=== PATIENT | female | born 1990 | race Caucasian/White ===

== ENCOUNTER 2024-08-24 10:31 | Outpatient (CLI) | payer BC, SELFPAY ==
[2024-08-24 10:53] VITALS: BP 130/88; PULSE 86
[2024-08-24 10:54] VITALS: PULSE 86; O2SAT 98
[2024-08-24 10:55] VITALS: PULSE 91; RESP 20; TEMP 36.8; O2SAT 98
--- NOTE | 2024-08-24 12:52 | PC.OBNST ---
NST Note NST Note Start: 08/24/24 12:51 Freq: ONCE Status: Active Protocol: Document 08/24/24 12:03 VERONICA (Rec: 08/24/24 12:52 VERONICA No Response) NST Note 5 Para (# of births) 3 EDC 09/17/24 Gestational Age In 36 Weeks & 4 Days Weeks & Days Patient Presented Contractions/cramping with Complaint(s) of Reactive Yes Appropriate for Yes Gestational Age YENIFER Nguyen, YENIFERC Date 08/24/24 Reactive Yes Appropriate for Yes Gestational Age YENIFER Balbuena, RN Date 08/24/24 OB NST charge Yes Complete NST Note Yes via Write Note The provider's electronic signature indicates the NST is reactive/appropriate for gestational age. *Note to provider: If an addendum is required, open the patient's chart and click on the note under the Nurse/Allied Health tab.
== END 2024-08-24 12:15 | disposition home or self-care (01) ==
LOC: OB OUT 10:32 → OB 12:09
PROVIDERS: PCP Family Medicine; Visit Provider Family Medicine
DX: O47.03 False labor before 37 completed weeks of gestation, third trimester (principal); Z3A.36 36 weeks gestation of pregnancy
CPT/HCPCS: 59025; G0463

== ENCOUNTER 2024-09-06 04:54 | Outpatient (CLI) | payer BC, SELFPAY ==
[2024-09-06 05:25] VITALS: BP 123/82; PULSE 93; RESP 16; TEMP 36.9
[2024-09-06 05:37] LABS: Appearance Urine Clear (Clear); Bilirubin Urine Negative (Negative); Blood Urine Negative (Negative); Color Urine Yellow (Yellow); Glucose Urine Negative (Negative); Ketones Urine Negative (Negative); Leukocyte Esterase Urine Negative (Negative); Nitrite Urine Negative (Negative); Protein Urine Negative (Negative); Urobilinogen Urine 0.2 (0.2-1.0); pH Urine 6.5 (5.0-8.5)
--- NOTE | 2024-09-06 06:53 | PC.OBNST ---
NST Note NST Note Start: 09/06/24 04:55 Freq: ONCE Status: Active Protocol: Document 09/06/24 06:40 JAROD (Rec: 09/06/24 06:41 JAROD Desktop) NST Note 5 Para (# of births) 3 EDC 09/17/24 Gestational Age In 38 Weeks & 3 Days Weeks & Days Patient Presented Contractions/cramping with Complaint(s) of Reactive Yes Appropriate for Yes Gestational Age RN Corey RN Date 09/06/24 Reactive Yes Appropriate for Yes Gestational Age RN Elayne RN Date 09/06/24 OB NST charge Yes Complete NST Note Yes via Write Note The provider's electronic signature indicates the NST is reactive/appropriate for gestational age. *Note to provider: If an addendum is required, open the patient's chart and click on the note under the Nurse/Allied Health tab.
== END 2024-09-06 06:45 | disposition home or self-care (01) ==
LOC: OB OUT 04:54 → OB 04:58
PROVIDERS: PCP Family Medicine; Visit Provider Family Medicine
DX: O47.1 False labor at or after 37 completed weeks of gestation (principal); Z3A.38 38 weeks gestation of pregnancy
CPT/HCPCS: 59025; 81003; G0463

== ENCOUNTER 2024-09-11 19:58 | Inpatient (IN) | payer BC, SELFPAY ==
[2024-09-11 20:04] VITALS: BMI 39.1
[2024-09-11 20:23] VITALS: BP 123/82; PULSE 81; RESP 18; TEMP 36.7
[2024-09-11 20:57] LABS: Basophils Absolute Auto 0.01 K/uL (0.00-0.30); Basophils Percent Auto 0.1 % (0.0-3.0); Eosinophils Absolute Auto 0.13 K/uL (0.00-0.50); Eosinophils Percent Auto 1.6 % (0.0-7.0); Hematocrit 32.9 % (33.0-51.0); Hemoglobin* 11.3 gm/dL (12.0-16.0); Immature Granulocytes Abs Auto 0.05 K/uL (0.00-0.30); Immature Granulocytes Pct Auto 0.6 %; Lymphocytes Absolute Auto 1.92 K/uL (0.90-2.90); Lymphocytes Percent Auto 23.3 % (20-44); Mean Corpuscular HGB Conc 34 gm/dL (32-36); Mean Corpuscular Hemoglobin 30 pg (26-34); Mean Corpuscular Volume 88 fL (80-100); Monocytes Percent Auto 7.4 % (0.0-11.0); Neutrophils Absolute Auto 5.53 K/uL (1.7-7.0); Platelet Count* 206 K/uL (140-440); RDW Coefficient of Variation % 13.4 % (11.5-15.5); Red Blood Count 3.75 m/uL (4.00-5.20); White Blood Count* 8.25 K/uL (4.50-11.00)
[2024-09-11 21:00] LABS: Slide Review Reflex No
[2024-09-11] MEDS: miSOPROStoL 25 MCG/0.25 TABLET VAGINAL (21:00)
--- NOTE | 2024-09-11 21:08 | P.OBHP_ITS ---
OB - H&P: HPI Labor/Induction History of Present Illness Time Seen by Provider: :08 Date Seen: 09/11/24 Chief Complaint: The patient is a 33 year old 5 para 3013 at 39.1 weeks gestation by 7 week ultrasound (partner removed her IUD, did not have period between this and conception) with KAREN of 09/15/24, who presents for IOL for AMA. Chief complaint: Maternity : 5 Para: 3 Indications for induction: other (advanced maternal age) Narrative: Julissa Vasquez is a 33 year old female 5 para 3013 at 39.1 weeks gestation by 7 week ultrasound (partner removed her IUD, did not have period between this and conception) with KAREN of 09/15/24, who presents for IOL for AMA and presumed macrosomia. Patient's was complicated by choroid plexus cyst, low risk NIPT. Normal anatomy screen otherwise. History of hemorrhage with last delivery (Pitocin, cytotec, hemabate) Presumed macrosomia, weight at 94th percentile. Abdominal circumference and head circumference greater than 98th percentile. History of Present Dating criteria: based on 1st trimester US only (7 week ultrasound after IUD removal) care: good care Ultrasounds: abnormal US findings (choroid plexus cyst. Otherwise normal level 2 ultrasound) complications comment: AMA, macrosomia Medical complications: none Labs Blood type: O (+) positive Rubella: immune RPR/VDLR: nonreactive GBS status: negative HBsAG: negative Review of Systems Status of ROS: Reports: 10 or more systems reviewed and unremarkable except as noted in History and below Meds Home Medications and Allergies Home Medications ?Medication ?Instructions ?Recorded ?Confirmed ?Type cetirizine 10 mg capsule (All Day 10 mg PO DAILY PRN 0 08/24/24 09/11/24 History Allergy (cetirizine)) famotidine 20 mg tablet 20 mg PO DAILY 08/24/2411/28 History vit no.95-ferrous 1 tab PO DAILY 08/24/2411/28 History fumarate 28 mg-folic acid 800 mcg tablet ( Formula) Allergies Allergy/AdvReac Type Severity Reaction Status Date / Time erythromycin base Allergy Verified 09/11/24 20:26 OB - H&P: Exam Physical Exam: Vital signs: Temp Pulse Resp BP 98.1 F 81 18 123/82 09/11/24 20:23 09/11/24 20:23 09/11/24 20:23 09/11/24 20:23 Constitutional: Constitutional: no acute distress Routine HEENT Exam: Head: Present atraumatic and normal inspection Detailed Neck Exam: Thyroids: Thyroid: Present normal Routine Respiratory Exam: Respiratory: Present CTA bilaterally Routine Cardiovascular Exam: Cardiovascular: RRR, S1 and S2 Detailed Labor and Delivery Exam: Patient Gravid: yes Dilation (cm): 1 Effacement (%): 30 Cervix position: posterior Consistency: soft Cervical ripeness score: 4 Contraction frequency (min): 5 Contraction intensity: Mild Fetus (Single): Station: -2 Amniotic Membrane Status: intact Heart Rate Baseline: 120 Monitor Accelerations: Present Monitor Decelerations: None Equine Manager Variability: Moderate (6-25) Routine Back/Spine/Pelvis Exam: Back/Spine: full ROM Routine Skin Exam: Present intact Routine Neurological Exam: Present alert and oriented X3 Routine Psychiatric Exam: Present normal affect and normal thought process OB - Results Labs Labs: Short CBC 09/11/24 Range/Units 20:50 WBC 8.25 (4.50-11.00) K/uL Hgb 11.3 L (12.0-16.0) gm/dL Hct 32.9 L (33.0-51.0) % Plt Count 206 (140-440) K/uL OB - Problem Based A/P Additional Plan (1) Advanced maternal age (AMA) in : Problem details: Age 33 Status: Acute (2) Macrosomia affecting management of mother: Problem details: Baby measuring 95%ile with >98th percentile in head and abdominal circumference. Prior babies were 7-8 lbs. Status: Acute (3) Term : Status: Acute (4) History of hemorrhage, currently : Problem details: Required pitocin, cytotec, hemabate. Status: Acute Plan: - Type and screen now - starting hemoglobin 11.3 - Plan on pitocin, cycotec and TXA Plan - Anticipate - cervical ripening with cytotec - Pit/AROM in am - epidural when desired. Delivery/Labor/Induction Plan Plan: induction Induction method: per misoprostol protocol
[2024-09-11] MEDS: CALCIUM CARBONATE 500 MG CHEW PO (21:33)
[2024-09-11] MEDS: MORPHINE 10 MG/ML inj IM (23:03)
[2024-09-11] MEDS: hydrOXYzine pamoate 25 MG CAPSULE 100 MG PO (23:03)
[2024-09-12] VITALS (137 sets, daily range): BP systolic 83–149; BP diastolic 44–83; PULSE 68–151; RESP 16–18; TEMP 36.3–37; O2SAT 89–100
[2024-09-12] MEDS: miSOPROStoL 25 MCG/0.25 TABLET VAGINAL ×3 (00:02→06:02)
[2024-09-12] MEDS: METOCLOPRAMIDE HCL 5 MG/ML INJ 10 MG IVP ×2 (00:13→08:48)
--- NOTE | 2024-09-12 08:21 | PM.OBPNL ---
Subjective Time Seen by Provider: 08:21 Date Seen: 09/12/24 Narrative: Patient slept off and on overnight but is tired today. She is feeling more cramping. 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
[2024-09-12] MEDS: LACTATED RINGERS 1000 ML 1,000 ML 125 ML IV ×2 (10:04→12:55)
[2024-09-12] MEDS: OXYTOCIN 30 unit/500 ML in NS 30 UNIT/500 ML BAG IVPB (10:05)
--- NOTE | 2024-09-12 12:35 | PM.OBPNL ---
Subjective Time Seen by Provider: 12:35 Date Seen: 09/12/24 Narrative: Patient had SROM of clear fluid, requests epidural for pain management Objective Exam: Appears more uncomfortable with contractions. Vital Signs: Last Vital Signs Temp 98 F 09/12/24 08:23 Pulse 72 09/12/24 11:17 Resp 18 09/12/24 08:23 BP 118/70 09/12/24 11:17 Pulse Ox 100 09/12/24 12:34 Contractions Monitor mode: External Contraction pattern: Regular Contraction intensity: Mild Pitocin Rate (mU/min): 6 Assessment Assessment: induction ongoing Station: -2 Amniotic Membrane Status: SROM Status: Category l Tracing Comments: Baby currently difficult to trace during epidural Plan Plan: - anticipate - getting epidural now - will plan on checking once comfortable unless urge to push prior to this.
[2024-09-12] MEDS: ROPIVACAINE 0.2% 100 ml 100 ML 12 MG EPIDURAL (12:54)
[2024-09-12] MEDS: LIDOCAINE 2% (PF) 5 ML VIAL EPIDURAL (12:55)
[2024-09-12] MEDS: PHENYLEPHRINE 100 MCG/ML SYRINGE IVP ×3 (13:11→13:14)
--- NOTE | 2024-09-12 13:11 | PM.ANBPRC ---
[facility] Medical History Family history of melanoma ?Z80.8 - Family history of malignant neoplasm of other organs or systems (ICD-10) Family history of early CAD ?Z82.49 - Family history of ischemic heart disease and other diseases of the circulatory system (ICD-10) Mild intermittent asthma ?J45.20 - Mild intermittent asthma, uncomplicated (ICD-10) Endometriosis determined by laparoscopy ?N80.9 - Endometriosis, unspecified (ICD-10) Surgical History [place] teeth extracted ?K08.409 - Partial loss of teeth, unspecified cause, unspecified class (ICD-10) History of tonsillectomy and adenoidectomy ?Z90.89 - Acquired absence of other organs (ICD-10) Hx of laparoscopy ?Z98.890 - Other specified postprocedural states (ICD-10) H/O colposcopy with cervical biopsy ?Z98.890 - Other specified postprocedural states (ICD-10) Status post breast reduction ?Z98.890 - Other specified postprocedural states (ICD-10) Hx of appendectomy ?Z90.49 - Acquired absence of other specified parts of digestive tract (ICD-10) Social History What is your current living situation?: I presently have a place to live Problems where you live: no known problems In the past 12 months, utilities in danger of being shut off: no In past 12 months, lack of transportation kept you from medical appts, meetings, work, or getting things needed for daily living: no In the past 12 mos, have been you worried that your food would run out before you had money to buy more?: never true In the past 12 mos, the food you bought just didn't last and you didn't have money to buy more?: never true Smoking Status: Never smoker How often does anyone, including family, friends and others, physically hurt you: never How often does anyone, including family, friends and others, insult or talk down to you: never How often does anyone, including family, friends and others, threaten you with harm: never How often does anyone, including family, friends and others, scream or curse at you: never Meds Home Medications and Allergies Home Medications ?Medication ?Instructions ?Recorded ?Confirmed ?Type cetirizine 10 mg capsule (All Day 10 mg PO DAILY PRN 08/24/24 09/11/24 History Allergy (cetirizine)) famotidine 20 mg tablet 20 mg PO DAILY 08/24/24 09/11/24 History vit no.95-ferrous 1 tab PO DAILY 08/24/24 09/11/24 History fumarate 28 mg-folic acid 800 mcg tablet ( Formula) Allergies Allergy/AdvReac Type Severity Reaction Status Date / Time erythromycin base Allergy Verified 09/11/24 20:26 Results Labs Labs: Laboratory Results - last 24 hr 09/11/24 20:50 WBC 8.25 RBC 3.75 L Hgb 11.3 L Hct 32.9 L MCV 88 MCH 30 MCHC 34 RDW Coeff of Samantha 13.4 Plt Count 206 Neut % (Auto) 67.0 Lymph % (Auto) 23.3 Bowman % (Auto) 7.4 Eos % (Auto) 1.6 Baso % (Auto) 0.1 Neut # (Auto) 5.53 Lymph # (Auto) 1.92 Bowman # (Auto) 0.60 Eos # (Auto) 0.13 Baso # (Auto) 0.01 Abs Immat Gran (auto) 0.05 Imm/Tot Granulo (auto) 0.6 Blood Type O Positive Antibody Screen NEGATIVE Vital Signs Vital Signs: Last Vital Signs Temp 98 F 09/12/24 08:23 Pulse 81 09/12/24 13:10 Resp 18 09/12/24 08:23 BP 83/44 L 09/12/24 13:10 Pulse Ox 98 09/12/24 13:09 Weight: 110.042 kg Height: 167.64 cm Anesthesia Procedures Epidural Insertion Patient Location: OB Start Time: 12:30 Stop Time: 13:30 Start Date: 09/12/24 Stop Date: 09/12/24 Reason for Block: procedure for pain Patient Position: sitting Performed By: Dariel Monsalve Preanesthetic Checklist: IV checked, risks and benefits discussed, monitors and equipment checked, pre-op evaluation, timeout performed and anesthesia consent Prep: chlorhexidine gluconate Monitoring: blood pressure monitoring, continuous pulse oximetry and heart rate Approach: midline Vertebral Space: lumbar (1-5) Epidural Technique: HALLE saline Needle Type: Tuohy needle Injection Technique: continuous catheter Needle gauge: 17 Needle Length (cm): 10 cm Needle Insertion Depth (cm): 6 Catheter Gauge: 19 Catheter Type: multi-orifice Catheter at skin depth (cm): 15 Test Dose Result: negative and lidocaine 1.5% with epinephrine 1 to 200,000
[2024-09-12] MEDS: ePHEDrine sulfate 5 MG/ML inj 10 MG IVP (13:15)
--- NOTE | 2024-09-12 13:57 | PM.OBPNL ---
Subjective Time Seen by Provider: 13:57 Date Seen: 09/12/24 Narrative: Patient is now comfortable with epidural. Patient had prolonged decel 2/2 maternal hypotension, resolved with IV fluids, phenylephrine, position changes. Pitocin turned off during this time. Patient was 6 cm. Patient had 1 elevated bp >140 while painful during epidural placement. 1 elevated bp when giving meds for hypotension. Will monitor bp closely. 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 Hypotension has been treated. Will likely be complete soon. Plan Plan: - anticipate - continue to monitor FHT, frequent position changes - will continue to monitor blood pressure closely.
--- NOTE | 2024-09-12 15:53 | W.PM.OBVAGDE ---
OB Procedure Vag Delivery Mother Details Mother Details: The patient is a 33 year-old, 5, Para 3, admitted on 09/11/24 at 39.1 Days gestation for IOL for AMA, presumed macrosomia. : 5 Para: 3 Weeks Gestation: 39.2 Admission Date: 09/11/24 Additional Details Amniotic Membrane Status: SROM Amniotic Membrane Rupture Date: 09/12/24 Amniotic Membrane Rupture Time: 12:10 Amniotic Membrane Fluid Description: Clear Analgesia/Anesthesia Type: Epidural Waterbirth: No Pitcoin: Yes Intrapartal Events: Labor Induction Induction Method: per misoprostol protocol and per pitocin protocol Labor Onset: 12:10 Complete: 14:21 Pushin:25 Heart: heart tones during second stage were had intermittent variable and late decals. We had to push on side for most of pushing so baby could recover between contractions. Had improvement in heart tracing just prior to delivery while pushing on left side. Delivery Details Delivery Date: 09/12/24 Delivery Time: 15:26 Route of delivery: Infant Gender: Male Viability: Alive; Heart Rate Present Position at Delivery: OP Delivery Details: Patient presented for IOL for AMA and macrosomia at 39.1. Received cytotec x4 overnight with good response. She was 3 cm when we initiated pitocin. She progressed well, SROMed at 1210 and requested epidural. She had dense epidural. Had recurrent early/variable decels. Progressed quickly becoming complete at 1421. We began pushing at 1425. Patient had dense epidural that made it difficult to push, so this was turned down during pushing. Patient then pushed effectively. Delivered via spontaneous vaginal delivery in OP position. Shoulders delivered easily. Infant was placed on maternal abdomen.? Cord was clamped and cut after a 30-60 second delay. Nose and mouth were bulb suctioned.? weight 8 lbs 12 oz. 1 Minute Interval Total Score: 8 5 Minute Interval Total Score: 9 Additional Details Shoulder Dystocia: No Placenta Delivery Time: 15:33 Placental Delivery Description: Spontaneous Delivery repair: Vicryl Procedure Done: Global Blood Loss: 250 Laceration: Perineal - 2nd Degree Blood Loss Measurement Type: QBL Bakri Used: No Sponge/Need Count Correct: Yes Cord Vessel Description: 3 Vessels Event Summary Status: Placenta showed accessory placental lobe and marginal cord, sent for pathology. Patient has history of hemorrhage, received pitocin and TXA immediately after cord was cut/clamped. Patient had some ongoing atony after repair, so cytotec was given. QBL was 250. Mother and were stable after delivery. Disposition: no change
[2024-09-12] MEDS: miSOPROStoL 800 MCG/4 TABLET PR (16:00)
[2024-09-12] MEDS: TRANEXAMIC ACID 100 MG/ML INJ 1000 MG IV (16:00)
[2024-09-12] MEDS: OXYCODONE 5 MG TABLET PO ×2 (16:22→20:49)
[2024-09-12] MEDS: ACETAMINOPHEN 500 MG TABLET 1000 MG PO ×2 (16:50→23:23)
[2024-09-12] MEDS: LIDOCAINE 1 % PF 30 ML INJECTION (16:50)
[2024-09-12] MEDS: IBUPROFEN 600 MG TABLET PO ×2 (17:50→23:23)
[2024-09-12 18:02] LABS: Hematocrit 34.5 % (33.0-51.0); Hemoglobin* 11.9 gm/dL (12.0-16.0); Mean Corpuscular HGB Conc 35 gm/dL (32-36); Mean Corpuscular Hemoglobin 30 pg (26-34); Mean Corpuscular Volume 87 fL (80-100); Platelet Count* 183 K/uL (140-440); Red Blood Count 3.98 m/uL (4.00-5.20); White Blood Count* 15.54 K/uL (4.50-11.00)
[2024-09-12 18:09] LABS: Slide Review Reflex No
[2024-09-12 18:42] LABS: Alanine Aminotransferase* 19 U/L (4-35); Aspartate Amino Transferase* 45 U/L (12-35); Blood Urea Nitrogen* 8 mg/dL (5-24); Creatinine* 0.5 mg/dL (0.5-1.5); Est. Creatinine Clearance* 147.01; Estimated Glomerular Filt Rate 125 ml/min
[2024-09-13] MEDS: OXYCODONE 5 MG TABLET PO ×3 (01:28→15:33)
[2024-09-13 04:11] LABS: Mean Corpuscular HGB Conc 34 gm/dL (32-36); Mean Corpuscular Hemoglobin 30 pg (26-34); Mean Corpuscular Volume 87 fL (80-100); Platelet Count* 176 K/uL (140-440); Red Blood Count 3.67 m/uL (4.00-5.20); White Blood Count* 12.02 K/uL (4.50-11.00)
[2024-09-13 04:12] LABS: Slide Review Reflex No
[2024-09-13 04:30] VITALS: BP 121/79; PULSE 80; RESP 16; TEMP 36.7; O2SAT 98
[2024-09-13 04:31] LABS: Alanine Aminotransferase* 23 U/L (4-35); Aspartate Amino Transferase* 60 U/L (12-35); Blood Urea Nitrogen* 7 mg/dL (5-24); Creatinine* 0.5 mg/dL (0.5-1.5); Est. Creatinine Clearance* 147.01; Estimated Glomerular Filt Rate 125 ml/min
[2024-09-13] MEDS: IBUPROFEN 600 MG TABLET PO ×3 (05:49→17:33)
[2024-09-13] MEDS: ACETAMINOPHEN 500 MG TABLET 1000 MG PO ×3 (05:49→17:32)
--- NOTE | 2024-09-13 07:46 | P.OBPN_ITS ---
OB - PN:Subj Subjective Time Seen by Provider: 07:46 Date Seen: 09/13/24 [place] status: bottle and doing well Narrative: Patient had difficulty with pain management, requiring oxycodone after delivery. Patient is feeling better with scheduled tylenol/ibuprofen/oxycodone. She is also using heating pad. She feels bleeding is appropriate Had elevated BP yesterday, no symptoms of preeclampsia. She continues to feel well. OB - PN: Obj Exam Physical Exam: Vital signs: Temp Pulse Resp BP Pulse Ox O2 Del Method 98.0 F 80 16 121/79 98 Room Air 09/13/24 04:30 09/13/24 04:30 09/13/24 04:30 09/13/24 04:30 09/13/24 04:30 09/13/24 04:30 Constitutional: Constitutional: no acute distress Routine HEENT Exam: Head: Present atraumatic and normal inspection Routine Neck Exam: Neck: Present full ROM Routine Respiratory Exam: Respiratory: Present CTA bilaterally Routine Cardiovascular Exam: Cardiovascular: Present RRR, S1 and S2; Absent murmur Routine Abdominal Exam: Abdominal: Present soft; Absent tenderness Fundus: Present firm Comments: uterus fundus 1 U umbilicus. Nontender Routine Extremities Exam: Extremities: Present full ROM, pulses intact and pedal edema (1+); Absent calf tenderness Routine Neurological Exam: Neurological: Present alert and oriented X3 Routine Psychiatric Exam: Psychiatric: Present normal affect OB - PN: Obj Data Labs Labs: Laboratory Results - last 24 hr 09/12/24 09/13/24 17:55 03:59 WBC 15.54 H 12.02 H RBC 3.98 L 3.67 L Hgb 11.9 L 11.0 L Hct 34.5 32.0 L MCV 87 87 MCH 30 30 MCHC 35 34 Plt Count 183 176 BUN 8 7 Creatinine 0.5 0.5 Estimated Creat Clear 147.01 147.01 Estimated GFR 125 125 AST 45 H 60 H ALT 19 23 OB - PN: A/P Delivery Assessment and Plan (1) Advanced maternal age (AMA) in : Problem details: Age 33 Status: Acute (2) Macrosomia affecting management of mother: Problem details: Baby measuring 95%ile with >98th percentile in head and abdominal circumference. Prior babies were 7-8 lbs. Status: Acute Assessment and Plan: Baby delivered 8 lbs 12 oz (3) Term : Status: Acute (4) History of hemorrhage, currently : Problem details: Required pitocin, cytotec, TXA, QBL 250 Status: Acute Assessment and Plan: - hemoglobin appropriate (5) (normal spontaneous vaginal delivery): Problem details: Delivered in OP position after 1 hour of pushing. Status: Acute Assessment and Plan: Pain control with oxycodone in addition to schedule tylenol/motrin (6) Gestational HTN: Problem details: BP elevation in recovery. Labs showed mildly elevated LFTs Status: Acute Assessment and Plan: - recheck LFT at 1300 today Plan - Recheck pre-e labs and continue to monitor for symptoms - pain management with ibuprofen/tylenol/oxycodone/heat - continue bottle feeding. Plan day: 1 Plan: routine care Comments: may discharge later today if LFTs stable/down trending and blood pressures continue to be stable.
[2024-09-13] MEDS: DOCUSATE SODIUM 100 MG CAPSULE PO (07:57)
[2024-09-13] MEDS: FAMOTIDINE 20 MG TABLET PO (07:57)
[2024-09-13 07:59] VITALS: PULSE 80; RESP 17; TEMP 36.6; O2SAT 98
[2024-09-13 09:21] VITALS: BP 115/76
--- NOTE | 2024-09-13 09:28 | PC.NURSE ---
RN called to room by patient for episode of lightheadedness while resting in bed. RN took a blood pressure, which was in normal range, and then educated patient on taking breaks from the heating pad on her abdomen. Patient also educated on sitting on the side of the bed for a minute before standing, and standing at bedside to make sure she feels well before walking. Patient will inform RN if episode repeats, or if she continues to feel unwell.
[2024-09-13 12:01] VITALS: BP 140/88; PULSE 80; RESP 18; TEMP 36.3; O2SAT 97
[2024-09-13 12:42] LABS: Rapid Plasma Reagin (RPR) Non Reactive (Non Reactive)
[2024-09-13 14:53] LABS: Hematocrit 31.3 % (33.0-51.0); Hemoglobin* 10.6 gm/dL (12.0-16.0); Mean Corpuscular HGB Conc 34 gm/dL (32-36); Mean Corpuscular Hemoglobin 30 pg (26-34); Mean Corpuscular Volume 89 fL (80-100); Platelet Count* 214 K/uL (140-440); Red Blood Count 3.52 m/uL (4.00-5.20); White Blood Count* 9.77 K/uL (4.50-11.00)
[2024-09-13 14:57] LABS: Slide Review Reflex No
[2024-09-13 15:08] LABS: Alanine Aminotransferase* 25 U/L (4-35); Aspartate Amino Transferase* 59 U/L (12-35); Blood Urea Nitrogen* 7 mg/dL (5-24); Creatinine* 0.6 mg/dL (0.5-1.5); Est. Creatinine Clearance* 122.51; Estimated Glomerular Filt Rate 120 ml/min
[2024-09-13 16:07] VITALS: BP 126/83; PULSE 80; RESP 17; TEMP 36.7; O2SAT 99
--- NOTE | 2024-09-13 16:34 | P.DS_ITS ---
DS: Providers Provider Time Seen by Provider: 07:15 Date Seen: 09/13/24 Date of admission: 09/11/24 19:58 Primary care physician: Renata Lobato MD Admitting Clinician: Renata Lobato MD Attending Physician on discharge: Renata Lobato MD Date of Discharge: 09/13/24 DS: Diagnosis Discharge Diagnosis (1) (normal spontaneous vaginal delivery): Status: Acute Problem details: Delivered in OP position after 1 hour of pushing. (2) Gestational HTN: Status: Acute Problem details: BP elevation in recovery. Labs showed mildly elevated LFTs, trending down prior to delivery (3) Advanced maternal age (AMA) in : Status: Acute Problem details: Age 33 (4) Macrosomia affecting management of mother: Status: Acute Problem details: Baby measuring 95%ile with >98th percentile in head and abdominal circumference. Baby born at [id number] (AGA) (5) Term : Status: Acute (6) History of hemorrhage, currently : Status: Acute Problem details: Required pitocin, cytotec, TXA, QBL 250 Exam Const: Vital Signs, click to edit/add: Vital Signs - 24 hr 09/12/24 16:35 09/12/24 16:35 09/12/24 16:41 Temperature Pulse Rate 82 Pulse Rate [Pulse Oximeter] Respiratory Rate 18 Blood Pressure 120/62 125/64 Blood Pressure [Le ft Arm] Pulse Oximetry Oxygen Delivery Me thod 09/12/24 16:46 09/12/24 16:50 09/12/24 16:51 Temperature Pulse Rate 80 94 Pulse Rate [Pulse Oximeter] Respiratory Rate 18 Blood Pressure 127/62 141/63 H Blood Pressure [Le ft Arm] Pulse Oximetry 99 100 Oxygen Delivery Me thod 09/12/24 16:56 09/12/24 17:01 09/12/24 17:01 Temperature Pulse Rate 80 80 Pulse Rate [Pulse Oximeter] Respiratory Rate 18 Blood Pressure 124/58 L 126/83 Blood Pressure [Le ft Arm] Pulse Oximetry 99 100 Oxygen Delivery Me thod 09/12/24 17:06 09/12/24 17:11 09/12/24 17:14 Temperature Pulse Rate Pulse Rate [Pulse Oximeter] Respiratory Rate Blood Pressure Blood Pressure [Le ft Arm] Pulse Oximetry 99 100 89 Oxygen Delivery Az thod 09/12/24 17:16 09/12/24 17:19 09/12/24 17:19 Temperature 98.0 F Pulse Rate 81 Pulse Rate [Pulse Oximeter] Respiratory Rate 18 Blood Pressure 142/67 H Blood Pressure [Le ft Arm] Pulse Oximetry 98 Oxygen Delivery Me thod 09/12/24 17:21 09/12/24 17:26 09/12/24 17:31 Temperature Pulse Rate Pulse Rate [Pulse Oximeter] Respiratory Rate Blood Pressure Blood Pressure [Le ft Arm] Pulse Oximetry 97 96 97 Oxygen Delivery Me thod 09/12/24 20:39 09/12/24 23:24 09/13/24 04:30 Temperature 97.4 F L 98.0 F Pulse Rate Pulse Rate [Pulse Oximeter] 88 80 80 Respiratory Rate 16 18 16 Blood Pressure Blood Pressure [Le ft Arm] 119/77 114/80 121/79 Pulse Oximetry 98 97 98 Oxygen Delivery Me od Room Air Room Air Room Air 09/13/24 07:59 09/13/24 09:21 09/13/24 12:01 Temperature 97.8 F 97.4 F L Pulse Rate Pulse Rate [Pulse Oximeter] 80 80 Respiratory Rate 17 18 Blood Pressure Blood Pressure [Le ft Arm] 115/76 140/88 H Pulse Oximetry 98 97 Oxygen Delivery Me thod Room Air Room Air 09/13/24 16:07 Temperature 98.0 F Pulse Rate Pulse Rate [Pulse Oximeter] 80 Respiratory Rate 17 Blood Pressure Blood Pressure [Le ft Arm] 126/83 Pulse Oximetry 99 Oxygen Delivery Me thod Room Air Documenting provider has reviewed patient's vital signs: yes Common normals: no apparent distress and oriented x3 HENMT: Common normals: normocephalic Head and scalp: normocephalic Neck & C-Spine: Common normals: full ROM Resp: Common normals: normal respiratory effort and clear to auscultation bilaterally Effort & inspection: able to speak in complete sentences Auscultation: clear to auscultation bilaterally Cardio: Common normals: regular rate, regular rhythm, S1 normal heart sound and S2 normal heart sound Rate: regular rate Rhythm: regular rhythm Heart sounds: S1 normal and S2 normal; no murmurs GI: Common normals: soft to palpation and non-tender Palpation: soft : Uterus: U/1 and firm Uterus palpation: uterus nontender Extremity: Common normals: normal to inspection and full ROM Neuro: Common normals: oriented x3 Skin: Common normals: no rashes or lesions noted General skin exam: no rashes or lesions noted OB - DS: Summary Hospital Course Hospital Course: The patient is a 33 year old G 5 P3 at 39.2 weeks gestation that was admitted to the Center on 09/11/24 for IOL for AMA, presumed macrosomia. She had an uncomplicated vaginal delivery. Given history of hemorrhage, we treated aggressively with pitocin, cytotec, TXA. QBL was 250 mls. She delivered a viable male . She is bottle feeding. the patient has done well. She had some difficulty with pain control, requiring oxycodone. Patient has had elevated bp in mild ranges, labs showed mildly elevated ALT, trending down before discharge. Blood pressure had 1 outlier today of 140, otherwise all within normal limits. Peripartum Data delivery method: Vaginal Laceration description: Perineal - 2nd Degree complications: none [place] Infant Gender: Male Infant Discharge Plan: Home Status at Discharge Functional status at discharge: independent ambulation Overall status at discharge: patient is back to baseline Time Spent with Patient Time attestation: Total time spent providing and/or coordinating discharge services: Time spent: Less than 30 minutes Discharge Plan Discharge Disposition: Home, Self-Care Date of Admission: 09/11/24 19:58 Attending Provider on Discharge: Renata Lobato Primary Care Provider: Renata Lobato Condition: Improved Anticipated Discharge Date/Time: 09/13/24 16:30 Discharge Medications: Continued famotidine 20 mg tablet 20 mg PO DAILY All Day Allergy (cetirizine) 10 mg capsule 10 mg PO DAILY PRN PNV [id number] fumarate-FA [ Formula] 28 mg iron- 800 mcg tablet 1 tab PO DAILY Discharge Orders: Discharge Order (Routine); Ordered 09/13/24 Ordered By: Renata Lobato Patient Education: OB Vaginal/Bottle Feeding Activity Level: Activity as Tolerated Activity Detail: Pelvic rest x 6 weeks, nothing in the vigina Discharge Diet: Regular Follow Up Appointments: Renata Lobato MD [Primary Care Provider, Family Practice] Forms: [facility] Info Instructions Discharge Comments: Please use tylenol/motrin prn for pain. Please use Oxycodone sparingly for severe pain. Please follow up with Dr. Lobato on 09/14 at 2pm. Please check blood pressure daily. Call with blood pressures >140/90 for more instructions or signs/symptoms of preeclampsia.
== END 2024-09-13 17:45 | disposition home or self-care (01) | DRG 560 ==
PROVIDERS: Family Medicine; Admitting Provider Family Medicine; PCP Family Medicine; Visit Provider Family Medicine
DX: O36.63X0 Maternal care for excessive fetal growth, third trimester, not applicable or unspecified (principal); O76 Abnormality in fetal heart rate and rhythm complicating labor and delivery; I95.89 Other hypotension; O70.1 Second degree perineal laceration during delivery; O13.5 Gestational [pregnancy-induced] hypertension without significant proteinuria, complicating the puerperium; Z37.0 Single live birth; Z3A.39 39 weeks gestation of pregnancy
CPT/HCPCS: 01967; 36415; 59200; 76815; 82565; 84450; 84460; 84520; 85025; 85027; 86592; 86850; 86900; 86901; 88307; A9270; J2003; J2270; J2765; J2795; J7120

== ENCOUNTER 2024-09-17 22:33 | Emergency (ER) | payer BC, SELFPAY ==
--- OUTSIDE RECORDS SUMMARY | 2024-09-17 22:36 | XMS_ITS | Clinical Summary ---
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 60 mL 1 3 Active cetirizine (ZYRTEC) 10 mg tablet Take 1 Tablet (10 mg) by mouth once daily. 0 3 Active albuterol HFA (PRO-AIR; VENTOLIN; PROVENTIL) 90 mcg/actuation inhalerIndication s:Mild intermittent reactive airway disease without complication (HC) INHALE 2 PUFFS BY MOUTH EVERY 6 HOURS NEEDED FOR SHORTNESS OF BREATH OR WHEEZING 18 g 3 Active 2-CSJO-GMVGM ACID-OM3 ORAL Take by mouth. A ctive famotidine 20 mg tabletIndications :Bad taste in mouth Take 1 Tablet (20 mg) by mouth once daily. 90 Tablet 5 Active oxyCODONE 5 mg immediate release tabletIndications : (normal spontaneous vaginal delivery) (HC) Take 1 Tablet (5 mg) by mouth every 6 hours if needed for Pain (severe pain unrelieved by tylenol/ibupro fen). 10 Tablet 5 Active docusate 100 mg capsuleIndication s: (normal spontaneous vaginal delivery) (HC) Take 1 Capsule (100 mg) by mouth 2 times daily if needed for Constipation. 90 Capsule 5 Active Active Problems Problem Noted Date Diagnosed Date Obesity in 05/05/2024 Choroid plexus cysts, , affecting care of mother, antepartum 05/05/2024 [facility], Supervision of high-risk 05/03/19 Overview (05/04/2024): Julissa Mayo Christina : 1990 REFERRING PROVIDER/CLINIC LOCATION/FAX #: Renata Lobato MD - [facility] Primary provider approves scheduling of recommended ultrasounds/testing: Yes [facility] ULTRASOUND/TESTING PATIENT Support person name: ULTRASOUND TYPE: level II REASON FOR VISIT: choroid plexus cyst NEXT VISIT ALERTS: Final KAREN by Early Ultrasound LMP Date: Patient's last menstrual period was 12/07/2023 (exact date). KAREN: 09/12/24 Early US: Date: 02/02/24 GA: 7w3d KAREN: 09/17/24 PrePregnancy Weight: 2013lb Height: 5'6 BMI: 34 PLANS & FUTURE APPOINTMENTS: ULTRASOUND/GROWTH PLAN: - Through: - Growth: Next TESTING PLAN: - Testing: Through DELIVERY PLAN: - Scheduled delivery: - Preferred delivery location: PRIMARY DIAGNOSIS: 33 y.o. Estimated Date of Delivery: 09/17/24 choroid plexus cyst MATERNAL Term x 3 (2006, 2017, 2020 - PPH) PREVIOUS ULTRASOUNDS: 04/29/24 19w6d EFW 360 grams, percentile: 82. Possible 7mm choroid plexus cyst (PCP) ECHO: SPECIALISTS/CONSULTS: Include: Specialty MD Clinic Name Phone# [place] and ADDED TO PATIENT CARE TEAM GENETICS: NIPS: low risk CARE COORDINATION: PERTINENT LABS: Labs reviewed? Normal? Blood type: O Rh Positive Antibody screen: Negative PERTINENT MEDS: PROCEDURES: IF FGR <10% or EFW <2000 grams: Add FGRPCOM PLAN OF CARE: Original and updated POC Pelvic pain 09/25/2022 Family history of melanoma 05/16/2022 Family history of early CAD 05/16/2022 Abdominal pain, RLQ (right lower quadrant) 05/16 Mild intermittent reactive a irway disease without complication 05/02/2021 08/22/2020 Overview (02/25/2021): Component Latest Ref Rng & Units 02/19/2021 Vaginal/Rectal OB Strep B PCR Negative Estimated Date of Delivery: 03/17/21 Patient's last menstrual period was 06/10/2020 (lmp unknown). Last Tdap- 12/25/2020 Last Flu vaccine- not on file Glucose (GTT) result- Component Latest Ref Rng & Units 12/25/2020 GLUCOSE,GESTATIONAL 65 - 140 mg/dL 104 TREPONEMA PALLIDUM Negative Negative 20 week US:Sonographic imaging demonstrates a single living intrauterine gestation. Fetus demonstrates a regular cardiac rate of 158 beats per minute. Fetus has a breech orientation . The placenta lies posteriorly . Amniotic fluid volume appears normal. Single deepest vertical pocket: 5.1 cm. The cervix is closed and measures 3.6 cm in length. The composite ultrasound gestational age is calculated at 20 weeks 6 days with an estimated sonographic due date of 03/13/2021 by today`s ultrasound. Allergies Allergen Reactions Erythromycin Hives OB History Para Term AB Living 3 2 1 0 0 2 SAB TAB Ectopic Multiple Live Births 0 0 0 0 2 # Outcome Date GA Lbr Levar/2nd Weight Sex Delivery Anes PTL Lv 3 Current 2 Term 04/29/17 39w4d M Vag PAM 1 Para 06/2006 3.37 kg (7 lb 7 oz) F Vag PAM Name: Josi Espino lab flowsheet for OB labs- Component Latest Ref Rng & Units 08/21/2020 08/21/2020 08/21/2020 12:04 PM 12:10 PM 12:10 PM ABORH O Rh Positive ANTIBODY SCREEN Negative Negative SPECIMEN EXPIRATION DATE/TIME 08/24/20 23:59 CHLAMYDIA PROBE Negative N GONORRHOEAE PROBE Negative RUBELLA IGG ANTIBODY Positive HIV-1/HIV-2 ANTIBODY Non-Reactive Non-Reactive TREPONEMA PALLIDUM Negative Negative HBSAG Nonreactive Nonreactive HEPATITIS C ANTIBODY Non-Reactive Non-Reactive Component Latest Ref Rng & Units 08/21/2020 12:10 PM ABORH ANTIBODY SCREEN Negative SPECIMEN EXPIRATION DATE/TIME CHLAMYDIA PROBE N GONORRHOEAE PROBE RUBELLA IGG ANTIBODY 6.05 HIV-1/HIV-2 ANTIBODY Non-Reactive TREPONEMA PALLIDUM Negative HBSAG Nonreactive HEPATITIS C ANTIBODY Non-Reactive Past Medical History: . Date ASCUS of cervix with negative high risk HPV 02/2013 2 Normal Paps following; routine Pap screening ASCUS with positive high risk HPV cervical 04/2010 Asthma intermittent. Healthy adult Past Surgical History: . Laterality Date ([place]) [place] APPENDECTOMY 1999 In 4th Grade BREAST REDUCTION 2017 COLPOSCOPY 04/2010 negative biopsies SEPTOPLASTY 2019 TONSIL AND ADENOIDECTOMY 2019 WISDOM TEETH EXTRACTION 2006 No data on file. 3 rd Problems (from 07/10/20 to present) No problems associated with this episode. Harini Sandoval RN.....08/22/2020 11:09 AM ASCUS with positive high risk HPV cervical 05/05 Overview (05/30/2021): 04/11/10 ASCUS/HPV+ 05/02/10 [place]: negative bx 02/2013 ASCUS/HPV negative 04/2021 NIL/HPV negative Plan:Pap/HPV due 04/2026 Estimated Date of Delivery Comme nts Yes 09/17/2024 Based on Ultraso und Encounters Date Type Department Care Team Description 09/17/2024 Telephone [facility] [address] [place] [address] Renata Lobato MD 09/14/2024 2:50 PM CDT Nurse/Clinic Staff Only [facility] [address] [place] [address] Blood Pressure 09/14/2024 Travel 09/13/2024 Orders Only [facility] Scanner 1 scan: (1-Ord) [facility], MULTIPLE LABS, 09/13/2024 09/13/2024 Telephone [facility] [address] [place] [address] Renata Lobato MD 09/13/[address] [facility] [phone] Ingrid Gonzalez MD 09/12/2024 Orders Only [facility] Scanner 1 scan: (1-Ord) [facility] MULT[facility]LE LABS, 09/12/2024 09/11/2024 Orders Only [facility] Scanner 1 scan: (1-Ord) [facility], LAB RESULTS, 09/11/2024 09/09/2024 9:35 AM CDT OB Encounter [facility] [address] [facility] [address] Renata Lobato MD Care (38w6d) 09/09/2024 Travel 09/06/2024 Orders Only [facility] Scanner 1 scan: (1-Ord) [facility], MULTIPLE LAB RESULTS, 09/06/2024 09/06/2024 Telephone [facility] [address] [facility] [address] Renata Lobato MD Cramping 09/04/2024 Travel 09/02/2024 9:35 AM CDT OB Encounter [facility] [address] [place] [address] Renata Lobato MD Care (37+6); Urinary Problem (odor started this morning ) 09/01/2024 Travel 08/26/2024 9:10 AM CDT OB Encounter [facility] [address] [facility] [place] [address] Renata Lobato MD Care (36 + 6 ) 08/26/2024 Travel 08/22/2024 Travel 08/19/2024 11:15 AM CDT Ancillary Procedure [facility] [address] [place] [address] 08/19/2024 10:25 AM CDT OB Encounter [facility] [address] [place] [address] Renata Lobato MD Care (35w6d) 08/19/2024 Travel 08/17/2024 Travel 08/12/2024 10:50 AM CDT OB Encounter [facility] [address] [facility] [place] [address] Renata Lobato MD Care (34w6d) 08/12/2024 Orders Only [facility] Scanner 1 scan: (1-Ord) [facility], 08/12/2024 08/12/2024 Travel 08/07/2024 Travel 07/29/2024 10:50 AM CDT OB Encounter [facility] [address] [place] [address] Renata Lobato MD Care (32w 6d) 07/29/2024 Travel 07/27/2024 Travel 07/15/2024 10:50 AM CDT OB Encounter [facility] [address] [place] [address] Renata Lobato MD Care (30w6d) 07/15/2024 Travel 07/10/2024 Travel 06/29/2024 9:35 AM CDT OB Encounter [facility] [address] [facility] [address] Renata Lobato MD Care (28 weeks 4 days) 06/28/2024 Travel 06/17/2024 10:50 AM CDT OB Encounter [facility] [address] [place] [address] Renata Lobato MD Care (26w 6d) 06/17/2024 Travel from Last 3 Months Immunizations Immunization Administration Dates Next Due COVID-19 vaccine (Pfizer-Bio NTech 30mcg/0.3mL) 12YO+ BREE-SUCROSE PF, MDV 05/02/2021 COVID-19 vaccine (Pfizer-Bio NTech 30mcg/0.3mL) PF, MDV 03/27/2021 DTP 11/14/1993,07/01/1990,06/15/1989 DTaP 06/19/1994 HIB PRP-T (ActHIB,Hiberix) 03/22/1990 Hepatitis B (Adult) 06/15/2002,11/18/2001 Hepatitis B (Peds) 10/25/1998 Human Papilloma Virus Vaccine 02/16/2013 MMR 11/18/2001,03/22/1990 Oral Polio Vaccine 06/19/1994,11/14/1993, 991 Td (Age >=7 Years) 11/18/2001 Tdap 06/29/2024, 1,01/26/2017,2011,08/05/2007 Family History Medical History Relation Name Comments Melanoma Brother Premature CHD (under age 60) Brother at age 29, over weight Hypertension Father Cancer Maternal Grandmother lung Crohn's disease Mother Anesthesia Problem Other 1 no reacti ons Cancer Other 2 lung, maternal great grandfather Relation Name Status Comments Brother Father Maternal Grandmother Mother Other 1 Other 2 Social History Tobacco Use Types Packs/Day Years Used Date Smoking Tobacco: Former Cigarettes Q uit: 01/18/2009 Smokeless Tobacco: Former Quit: 10/21/2019 Tobacco Cessation:Counseling Given: Yes Alcohol Use Standard Drinks/Week Comments Not Currently 0 (1 standard drink = 0.6 oz pur e alcohol) occassional PHQ-2 Answer Date Recorded PHQ-2 TOTAL SCORE 0 08/26/2024 Social Connections Answer Date Recorded Do you often feel lonely or isolated from those around you? 0 01/19/2024 Financial Resource Strain Answer Date R ecorded Difficulty of Paying Living Expenses 3 01/19/2024 Difficulty of Paying Living Expenses Not on file 01/19/2024 Food Insecurity Answer Date Recorded Do you worry your food will run out before you are able to buy more? 1 01/19/2024 Transportation Needs Answer Date Record ed Does lack of transportation keep you from medica l appointments? 1 01/19/2024 Does lack of transportation keep you from work, meetings or getting things that you need? 1 01/19/2024 Housing Stability Answer Date Recorded What is your housing situation today? 1 01/19/2024 Utilities Answer Date Recorded Do you have trouble paying f or utilities (for example, heat, electricity, water, phone)? 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 Not on file Not on file Not on file Obstetrics History Para Term AB IAB SAB Ectopic Multiple Livin g Live Births 5 3 3 1 1 3 3 Date Outcome GA Total Labor Labor/2nd/3rd Weight Sex Type Anes PTL Pam A1 A5 Name Clin 7 Term 3.37 kg (7 lb 7 oz) F Vag Livin g Josi 2010 IAB ELECTI VE AB 2017 Term 39w 4d M Vag Livin g 2020 Term 39w 5d F Vag Spinal Livin g Delfina Lobato Complications: hem orrhage (HC) Current Comments ETOP x 1, D&C Summary Episode Dates Number of Fetuses Estimated Date of Delivery 01/19/2024 - Present (09/17/2024) 1 09/17/2024 (set by Mayda Lobato MD on 02/26/2024 based on Ultrasound on 02/02/2024) Dating Summary Based On KAREN GA Diff Last Menstrual Period on 12/07/2023 (Exact Date) 09/12/2024 +5d Ultrasound on 02/02/2024 09/17/2024 Working GA:7w3d Alternate KAREN Entry 09/12/2024 +5d Comment:Date entered prior t o episode creation Vitals Pregravid Weight Height TWG (As of 09/17/2024) Pregrav id BMI 95.3 kg (210 lb) 13.4 kg (29 lb 9.6 oz) Date GA Fund Present FHR Mvmt BP Weight Edema Alb Glu Ket Dil/ Eff/Sta 5 20w5d Inpatient data not displayed here. See encounter summary. Notes Progress Notes - OB Encounte r - 09/09/2024 - GA:38w6d 09/09/2024 - 38w6d - Jonel Lobato MD Patient is here for routine care at 38w6d Concerns: Patient is here for routine care at 37w6d OB problem list: AMA - completed level 2 ultrasound - Shows choroid plexus cyst. - low risk NIPT History of hemorrhage - requiring pit, cytotec, hemabate - type and screen on admission; plan on pit/cytotec/ ?TXA Choroid plexus cyst - normal NIPT Presumed macrosomia Estimated weight at 94th percentile. Abdominal circumference and head circumference greater than 98th percentile Induction of labor planned for 6/9 at 0730. 1/30%/-2/soft/posterior Martínez Score: Dilation-- 1-2cm (1) Effacement--0-30% (0) Station-- - -2(1) Cervical Consistency-- Soft (2) Cervical Position-- Posterior (0) Total: 4 No bleeding, loss of fluid Had contractions earlier in the week and had rule out labor at center. No Headache, vision changes, edema, right upper quadrant pain. Baby is moving well Labs today- none Discussed signs/symptoms of labor and when to call Reviewed preeclampsia symptoms IOL moved to Thursday evening at 8pm due to martínez score of 4. Will do cytotec per protocol and plan on pit/arom in AM as needed Renata Lobato MD .................... 09/09/2024 9:56 AM CC: [facility] Progress Notes - OB Encounte r - 09/02/2024 - GA:37w6d 09/02/2024 - 37w6d - Jonel Lobato MD Patient is here for routine care at 37w6d OB problem list: AMA - completed level 2 ultrasound - Shows choroid plexus cyst. - low risk NIPT History of hemorrhage - requiring pit, cytotec, hemabate - type and screen on admission; plan on pit/cytotec/ ?TXA Choroid plexus cyst - normal NIPT Presumed macrosomia Estimated weight at 94th percentile. Abdominal circumference and head circumference greater than 98th percentile Induction of labor planned for 09/12 at 0730. Concerns: new odor,discharge. Wants to stop work, she is having a lot of pain after work. Stephan more at work. Graduation is tonight. No bleeding, loss of fluid No vision changes, edema, right upper quadrant pain. Small headache--tylenol helped. Baby is moving well Results for orders placed or performed in visit on 08/19/24 HEMOGLOBIN Collection Time: 08/19/24 11:06 AM Result Value Ref Range HEMOGLOBIN 11.5 (L) 11.7 - 15.5 g/dL VAGINAL/RECTAL OB STREP PCR Collection Time: 08/19/24 11:27 AM Specimen: Vaginal/Rectal; Other Result Value Ref Range Vaginal/Rectal OB Strep B PCR Negative Labs today- TGC for vaginal odor. Discussed signs/symptoms of labor and when to call Reviewed preeclampsia symptoms Renata Lobato MD .................... 09/02/2024 10:11 AM CC: [facility] Progress Notes - OB Encounte r - 08/26/2024 - GA:36w6d 08/26/2024 - 36wd - Jonel Lobato MD Patient is here for routine care at 36w6d OB problem list: AMA - completed level 2 ultrasound - Shows choroid plexus cyst. - low risk NIPT History of hemorrhage - requiring pit, cytotec, hemabate - type and screen on admission; plan on pit/cytotec/ ?TXA Choroid plexus cyst - normal NIPT Concerns: went to center with contractions, no changes in cervix. Feeling better. Was 1 cm. No bleeding, loss of fluid No Headache, vision changes, edema, right upper quadrant pain. Baby is moving well Growth US 08/19: Normal biophysical profile score of 8/8. Sonographic gestational age 37 weeks 5 days and sonographic due date 09/04/2024. Sonographic age is 13 days ahead of the clinical age. Estimated weight at 94th percentile. Abdominal circumference and head circumference greater than 98th percentile. Labs today- none Results for orders placed or performed in visit on 08/19/24 HEMOGLOBIN Collection Time: 08/19/24 11:06 AM Result Value Ref Range HEMOGLOBIN 11.5 (L) 11.7 - 15.5 g/dL VAGINAL/RECTAL OB STREP PCR Collection Time: 08/19/24 11:27 AM Specimen: Vaginal/Rectal; Other Result Value Ref Range Vaginal/Rectal OB Strep B PCR Negative Discussed signs/symptoms of labor and when to call Reviewed preeclampsia symptoms RTC weekly until delivery Renata Lobato MD .................... 08/26/2024 9:21 AM CC: [facility] Progress Notes - OB Encounte r - 08/19/2024 - GA:35w6d 08/19/2024 - 35w6d - Jonel Lobato MD OB H&P HPI: Pt is a 33 y.o. at 35w6d gestation based ultrasound (7 weeks), with Estimated Date of Delivery: 09/17/24. Present for routine care. Had choroid plexus cyst, Low risk NIPT. Normal anatomy screens otherwise. Having a bit more discharge, no leaking. Some BH contractions. Baby is moving well History of hemorrhage with last delivery. Had hemorrhage requiring pit, cytotec, hemabate Dates based on Ultrasound (Boyfriend pulled her IUD in November, didn't have normal period) IMPRESSION: Single living intrauterine with sonographic gestational age 7 weeks 3 days and a sonographic due date of 09/17/2024. COURSE: Primary FMOB MD: Renata Lobato MD 1st visit: 6 weeks. Total Weight Gain: 28 lbs. Prepregnancy Wt: 210. Current Wt.: 108 kg (238 lb) TESTING: GBS: -- pending O Rh positive One Hour Glucose = 104 Hgb = 11.8 Hbsag: nonrreactive Anti HCV: non reactive HIV = non-reactive Treponema = non-reactive ULTRASOUND: -- US for dates done IMPRESSION: Single living intrauterine with sonographic gestational age 7 weeks 3 days and a sonographic due date of 09/17/2024. survey: IMPRESSION: 1. Living fetus with gestational age of 19 weeks 6 days by 1st trimester ultrasound dating and 20 weeks 6 days by today`s measurements. EDC based on 1st trimester ultrasound dating 09/17/2024. 2. Possible 7 mm right choroid plexus cyst. Otherwise negative survey. Limited follow up suggested. Level 2 ultrasound for choroid plexus cyst. IMPRESSIONS: Intrauterine at 20w 5d. presentation is Cephalic. EFW 393 grams 58 Percentile. Growth parameters and estimated weight were appropriate for gestational age. No major structural anomalies identified. One minor marker of aneuploidy identified: choroid plexus cyst (GLOBAL LOGISTICS ANALYST). No other markers for aneuploidy were identified Placental location: Anterior w/ small portion lead fabricator rt lat. Placental edge dist from international banker os= 5.23 Deepest Vertical Pocket of amniotic fluid: 4.16 cm. The transabdominal cervical length is 4.6 cm. The following structures were siuboptmally visualized: 4 chamber, aortic arch, ductal arch, nasal bone, profile, left lower extremity RECOMMENDATIONS: -Return to primary provider for continued care. -No alterations in the delivery plan are necessary. -No medication changes are indicated. -No surveillance suggested. -A follow up ultrasound for growth is recommended in 4 weeks to examine the remaining anatomic structures. -Patient directed to schedule at the bowling or skating front desk clerk on the way out, or to call [facility] within 2 business days to schedule follow up. . Follow up ultrasound: IMPRESSION: Sonographic gestational age 26 weeks 2 days and sonographic due date of 09/16/2024. Sonographic age is 11 days ahead of the clinical age. Estimated weight 95th percentile. Abdominal circumference 96th percentile. Choroid plexus cyst not well visualized. COMPLICATIONS: -- Had choroid plexus cyst, Low risk NIPT. Normal anatomy screens otherwise. 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 Date Abdominal pain, RLQ ASCUS with positive high risk HPV cervical 04/2010 Plan:Pap/HPV due 04/2026 Asthma (HC) intermittent. Chronic pelvic pain in female 09/2022 Family history of early CAD Family history of melanoma Healthy adult Mild intermittent reactive airway disease without complication (HC) (HC) PAST SURGICAL HISTORY: Past Surgical History: . Laterality Date ([place]) [place] APPENDECTOMY 1998 In 4th Grade BREAST REDUCTION 2017 COLPOSCOPY 04/2010 negative biopsies diagnostic laparoscopy, excision of endometriosis 09/26/2022 Dr Paiz DILATION AND CURETTAGE SEPTOPLASTY 2019 TONSIL AND ADENOIDECTOMY 2019 WISDOM TEETH EXTRACTION 2007 ALLERGIES: Allergies Allergen Reactions Erythromycin Hives MEDICATIONS: Current Outpatient Medications on File Prior to Visit Medication Sig Dispense Refill albuterol (PROVENTIL) 0.083 % neb solution Inhale 3 mL (2.5 mg) via a nebulizer every 6 hours if needed for Shortness Of Breath, Wheezing or Cough. 60 mL 1 albuterol HFA (PRO-AIR; VENTOLIN; PROVENTIL) 90 mcg/actuation inhaler INHALE 2 PUFFS BY MOUTH EVERY 6 HOURS NEEDED FOR SHORTNESS OF BREATH OR WHEEZING 18 g 0 cetirizine (ZYRTEC) 10 mg tablet Take 1 Tablet (10 mg) by mouth once daily. 0 famotidine 20 mg tablet Take 1 Tablet (20 mg) by mouth once daily. 90 Tablet 0 6-WKGJ-IUDAM ACID-OM3 ORAL Take by mouth. No current facility-administered medications on file prior to visit. 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 Social History Socioeconomic History Marital status: Single Spouse name: Kulwinder Number of children: 2 Occupational History Occupation: [employer] Employer: [employer] Comment: Lety Tobacco Use Smoking status: Former Current packs/day: 0.00 Types: Cigarettes Quit date: 01/18/2009 Years since quittin.5 Smokeless tobacco: Former Quit date: 10/21/2019 Vaping Use Vaping status: Former Substance and Sexual Activity Alcohol use: Not Currently Comment: occassional Drug use: No Sexual activity: Yes Partners: Male Other Topics Concern Blood Transfusions No Caffeine Concern No Exercise No Comment: starting to again, aerobics and lifting. Seat Belt Yes Self-Exams No Social History Narrative Engaged-- Kulwinder DaughterJosi, born in 2006. 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 PHYSICAL EXAM: VS: BP 117/78 (Cuff Site: Left Arm, Position: Sitting, Cuff Size: Adult Large) Pulse (!) 108 Wt 108 kg (238 lb) LMP 12/07/2023 (Exact Date) SpO2 98% BMI 38.41 kg/m Gen: alert, oriented, NAD Resp: breathing comfortably Abd: Palpates soft, gravid Ext: warm, dry, no edema bilaterally Julissa was seen today for care. Diagnoses and all orders for this visit: Supervision of high risk in first trimester (HC) - VAGINAL/RECTAL OB STREP PCR; Future - HEMOGLOBIN; Future - HEMOGLOBIN - VAGINAL/RECTAL OB STREP PCR Multigravida of advanced maternal age in first trimester (HC) - VAGINAL/RECTAL OB STREP PCR; Future - VAGINAL/RECTAL OB STREP PCR History of hemorrhage- requiring pit, cytotec, hemabate -- will plan on pit, cytotec, possibly TXA. Type and cross on admit - VAGINAL/RECTAL OB STREP PCR; Future - VAGINAL/RECTAL OB STREP PCR -- 33 y.o. female @ 35w6d, here for routine care -- GBS Status: collected today -- Baby MD Carlitos Lobato -- growth scan today -- Scheduled for IOL 09/12 at 0730 Renata Lobato MD .................... 08/19/2024 10:42 AM Cc: [facility] Progress Notes - OB Encounte r - 08/12/2024 - GA:34w6d 08/12/2024 - 34w6d - Jonel Lobato MD Patient is here for routine care at 34w6d Concerns: tired Hips and everything hurts. Having trouble pooping. No Contractions, bleeding, loss of fluid No Headache, vision changes, edema, right upper quadrant pain. Feels her vision is sometimes Worse but no loss of vision/spots. Baby is moving well Prior babies: 7 lbs 7 oz 8 lbs 12 oz 8 lbs 14 oz Feels huge Will do growth ultrasound. GBS next visit Discussed signs/symptoms of labor and when to call Reviewed preeclampsia symptoms Renata Lobato MD .................... 08/12/2024 11:14 AM CC: [facility] Progress Notes - OB Encounte r - 07/29/2024 - GA:32w6d 07/29/2024 - - Jonel Lobato MD Patient is here for routine care at 32w6d Concerns: some hip pain bilaterally, interfering with sleep Bursitis pain bilaterally, tender on exam. Discussed supportive cares No Contractions, bleeding, loss of fluid No Headache, vision changes, edema, right upper quadrant pain. Baby is moving well Labs today- none Discussed signs/symptoms of labor and when to call Reviewed preeclampsia symptoms RTC in 2 weeks, then weekly until delivery Renata Lobato MD .................... 07/29/2024 11:07 AM CC: [facility] Progress Notes - OB Encounte r - 07/15/2024 - GA:30w6d 07/15/2024 - - Jonel Lobato MD Patient is here for routine care at 30w6d Concerns: back pain, Thursday/ hard at work. Baby shower tomorrow Pepcid is helping heartburn. Has a little skin lesion in left groin. No Contractions, bleeding, loss of fluid No Headache, vision changes, edema, right upper quadrant pain. Baby is moving well Name: Ramana Ha today- none Discussed signs/symptoms of labor and when to call Reviewed preeclampsia symptoms RTC in 2 weeks Scheduled IOL for 09/12 at 0730 for AMA (Thursday) Renata Lobato MD .................... 07/15/2024 10:51 AM CC: [facility] Progress Notes - OB Encounte r - 06/29/2024 - GA:28w4d 06/29/2024 - - Jonel Lobato MD Patient is here for routine care at 28w4d Concerns: some cramping. No Contractions, bleeding, loss of fluid No Headache, vision changes, edema, right upper quadrant pain. Baby is moving well Labs last visit Results for orders placed or performed in visit on 06/17/24 TREPONEMA PALLIDUM Collection Time: 06/17/24 10:37 AM Result Value Ref Range TREPONEMA PALLIDUM Non-Reactive Non-Reactive HEMOGLOBIN Collection Time: 06/17/24 11:42 AM Result Value Ref Range HEMOGLOBIN 11.8 11.7 - 15.5 g/dL GLUCOSE TOLERANCE, GESTATIONAL SCREEN 1H Collection Time: 06/17/24 11:42 AM Result Value Ref Range GLUCOSE, GESTATIONAL SCREEN (50G)-140 CUTOFF 104 <140 mg/dL TDaP-- done today Discussed signs/symptoms of labor and when to call Reviewed preeclampsia symptoms Renata Lobato MD .................... 06/29/2024 10:02 AM CC: [facility] Progress Notes - OB Encounte r - 06/17/2024 - GA:26w6d 06/17/2024 - d - Jonel Lobato MD Patient is here for routine care at 26w6d Concerns: feeling big No Contractions, bleeding, loss of fluid. Some cramping. No Headache, vision changes, edema, right upper quadrant pain. Baby is moving well Wants to do Mirena for contraception afterward-- wants to not have periods. May bottle feed Had hemorrhage requiring pit, cytotec, hemabate Has severe post- cramping requiring oxycodone. Has grad libertarian scheduled for 09/10 for daughter. Possible AMA induction on 09/12??? Labs today : GTT, hemoglobin, Treponema TDaP-- will give on 07/15 visit Discussed signs/symptoms of labor and when to call Reviewed preeclampsia symptoms RTC in 2 weeks, sooner with concerns Renata Lobato MD .................... 06/17/2024 11:07 AM CC: [facility] Progress Notes - OB Encounte r - 05/20/2024 - GA:22w6d 05/20/2024 - wd - Jonel Lobato MD Patient is here for routine care at 22w6d Concerns: vomited last night. This is not unusual. Has a foul taste in her mouth. Will trial famotidine. No Contractions, bleeding, loss of fluid No Headache, vision changes, edema, right upper quadrant pain. Baby is moving well IMPRESSIONS: Intrauterine at 20w 5d. presentation is Cephalic. EFW 393 grams 58 Percentile. Growth parameters and estimated weight were appropriate for gestational age. No major structural anomalies identified. One minor marker of aneuploidy identified: choroid plexus cyst (GLOBAL LOGISTICS ANALYST). No other markers for aneuploidy were identified Placental location: Anterior w/ small portion lead fabricator rt lat. Placental edge dist from international banker os= 5.23 Deepest Vertical Pocket of amniotic fluid: 4.16 cm. The transabdominal cervical length is 4.6 cm. The following structures were siuboptmally visualized: 4 chamber, aortic arch, ductal arch, nasal bone, profile, left lower extremity RECOMMENDATIONS: -Return to primary provider for continued care. -No alterations in the delivery plan are necessary. -No medication changes are indicated. -No surveillance suggested. -A follow up ultrasound for growth is recommended in 4 weeks to examine the remaining anatomic structures. -Patient directed to schedule at the bowling or skating front desk clerk on the way out, or to call [facility] within 2 business days to schedule follow up. . She is hoping to do her follow up ultrasound here at [place]. GTT in 4 weeks Discussed signs/symptoms of labor and when to call Reviewed preeclampsia symptoms RTC in 4 weeks, sooner with concerns Renata Lobato MD .................... 05/20/2024 11:03 AM CC: [facility] FINISHER Progress Notes - Hospital En counter - 05/05/2024 - GA:20w5d 05/05/2024 - 20w5d - Carlos Franco, MS, [facility] [place] Clinic Note Genetic Counseling RE: Julissa Vasquez : 1990 MR: [id number] Partner name: Kulwinder Referred By: Renata Lobato MD Indication for Visit: Suspected right sided GLOBAL LOGISTICS ANALYST History: KAREN: 09/17/24 by ultrasound GAA: 20w5d Complete genetic screening/testing: Low risk NIPT Family History: The family history is negative for reports of defects, intellectual disability, multiple miscarriages, stillbirths and other signs of genetic disease. Family members were reported as healthy unless otherwise indicated. There is no reported consanguinity. Discussion: Choroid Plexus Cysts are seen in approximately 1/100 or 1% of pregnancies. The choroid plexus is a group of blood vessels in each ventricle of the brain, and functions to produce cerebral spinal fluid. A choroid plexus cyst (GLOBAL LOGISTICS ANALYST) is a small fluid filled structure within the choroid plexus of the brain. A GLOBAL LOGISTICS ANALYST is not considered a structural or functional brain abnormality, and the majority of CPCs resolve by 28 weeks (Luis, 1988). Most often CPCs occur as the only finding in a and are not associated with an increased level of concern for developmental differences in childhood (Kevin, 2005). When CPCs are seen in association with other ultrasound findings such as growth delay, heart defects, and/or abnormal positioning of the hands and feet, there is concern for a chromosome aneuploidy called Trisomy 18 (Jorge, 2009). In addition to ultrasound findings, there is an increased rate for miscarriage. Trisomy 18 results in many serious health and developmental concerns, and those who are delivered frequently live only weeks or months. When isolated, this finding likely represents normal variation. Of note, Julissa had previous low risk cell free DNA screening for the five most common chromosomal conditions, including Trisomy 18. This greatly reduces the risk for Trisomy 18 in this , but does not eliminate it. A detailed level ll ultrasound can be used to look for additional concerns. 70- 95% of babies with Trisomy 18 will be suspected on a comprehensive anatomy scan like a level II ultrasound (Tasneem, 2000; Stock, 2018). If additional findings are noted by ultrasound, further tests will be recommended. Plan: Julissa will proceed with the level II ultrasound today. See ultrasound report for details. She declines an amniocentesis at this time. Thank you for allowing us to participate in your patient's care. Please do not hesitate to contact me at [phone] with any additional questions or concerns. Sincerely, Silas Franco MS, [facility] [place] Licensed Genetic Counselor Total time: 45 minutes Total [id number] time: 30 minutes; Total time preparing to see this patient and coordinating care time on the same calendar date: 15 minutes. [facility] - [address], [address] [place] [address] FINISHER Progress Notes - OB Encounte r - 04/22/2024 - GA:18w6d 04/22/2024 - 18w6d - Jonel Lobato MD Patient is here for routine care at 18w6d Concerns: tired. Worried about not feeling baby. Nausea resolved. Still gets occasional headache, better with water. No cramping, bleeding, loss of fluid No vision changes, edema, right upper quadrant pain. Bedside US shows active baby ? Anterior placenta Follow up in 4 weeks ( survey in 2) Julissa was seen today for care. Diagnoses and all orders for this visit: Supervision of high risk in first trimester Mild intermittent reactive airway disease without complication Multigravida of advanced maternal age in first trimester History of hemorrhage Renata Lobato MD .................... 04/22/2024 11:28 AM CC: [facility] FINISHER Progress Notes - OB Encounte r - 03/25/2024 - GA:14w6d 03/25/2024 - 14w6d - Jonel Lobato MD Patient is here for routine care at 14w6d Concerns: Still has good and bad days with nausea/vomiting. Hydrated, trying to eat. No cramping, bleeding, loss of fluid No Headache, vision changes, edema, right upper quadrant pain. Labs today-none Declines flu/COVID-19 Schedule survey-- declines level 2 for AMA Follow up in 4 weeks, sooner with concerns. NIPT -- BOY, low risk Renata Lobato MD .................... 03/25/2024 10:24 AM CC: [facility] FINISHER Progress Notes - OB Encounte r - 02/26/2024 - GA:10w6d 02/26/2024 - wd - Jonel Lobato MD Patient is here for routine care at 10w6d Concerns: Wants to do jean marie/panorama testing + sex. Has been having 3 severe headache. Had 2 while at [employer]. Both in November triggered by roller coaster. Severe left sided headache. Happened on roller coaster x 2. Made her feel like she had to vomit. Had it happen again during intercourse last Thursday. Lasts 20 minutes. Severe for 5-10 minutes, then dulls. She did vomit this past time. Nausea is off and on. Sleeps a lot, is always tired. No cramping, bleeding, loss of fluid O: BP 112/78 (Cuff Site: Left Arm, Position: Sitting, Cuff Size: Adult Large) Pulse 86 Wt 94.2 kg (207 lb 9.6 oz) LMP 12/07/2023 (Exact Date) SpO2 99% BMI 33.51 kg/m Neuro: Alert and oriented x 3, CN 2-12 intact, strength in upper and lower extremities 5/5, sensation to light touch in arms and legs intact. Normal gait. Bedside US shows active baby Dates based on Ultrasound IMPRESSION: Single living intrauterine with sonographic gestational age 7 weeks 3 days and a sonographic due date of 09/17/2024. Julissa was seen today for care and headache. Diagnoses and all orders for this visit: Supervision of high risk in first trimester Multigravida of advanced maternal age in first trimester Patient desires NIPT testing, drawn today - DNA SCREEN SEND OUT; Future Coital headache- We discuss coital headache, also triggered by roller coaster. Will get MRI to further evaluate. Will place Neuro consultation as well. - MR HEAD BRAIN WO MR ANGIO HEAD WO NECK WWO; Future Renata Lobato MD .................... 02/26/2024 10:21 AM CC: [facility] FINISHER Progress Notes - OB Encounte r - 01/19/2024 - GA:5w3d 01/19/2024 - 5w3d - Luis Alfredo, Mt elza Choudhury MD Clinic Note: First OB Visit 01/19/2024 Julissa Vasquez is a 33 y.o. with Estimated Date of Delivery: 09/12/24, here today for a first visit. Race/Ethnicity: /White Marital Status: partnered. 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 When she wakes in the morning she has some numbness/swelling. Has history of endometriosis. Had surgery 09/2022. Has some pelvic pain. +breast tenderness Did have spotting x 1 Has had 3 vaginal deliveries (2006, 2017, 2020). Pulled IUD (boyfriend did it) in November. Is taking vitamin MENSTRUAL HISTORY Patient's last menstrual period was 12/07/2023 (exact date).: Cycle Regularity: just one period since removing IUD Flow: normal KAREN by LMP Calculator: Estimated Date of Delivery: 09/12/24 Date Reliability: definite On BCP's at conception: no MEDICAL HISTORY Medical, surgical, family, and social history reviewed today and updated if necessary. Past Medical History: . Date Abdominal pain, RLQ ASCUS with positive high risk HPV cervical 04/2010 Plan:Pap/HPV due 04/2026 Asthma intermittent. Chronic pelvic pain in female 09/2022 Family history of early CAD Family history of melanoma Healthy adult Mild intermittent reactive airway disease without complication Past Surgical History: . Laterality Date (IA) [place] APPENDECTOMY 1998 In 4th Grade BREAST REDUCTION 2017 COLPOSCOPY 04/2010 negative biopsies diagnostic laparoscopy, excision of endometriosis 09/26/2022 Dr Paiz DILATION AND CURETTAGE SEPTOPLASTY 2019 TONSIL AND ADENOIDECTOMY 2019 WISDOM TEETH EXTRACTION 2007 Family History Problem Relation Age of Onset Crohn's disease Mother Premature CHD (under age 60) Brother at age 29, over weight Melanoma Brother Cancer Maternal Grandmother lung Anesthesia Problem Other no reactions Hypertension Father Cancer Other lung, maternal great grandfather Social History Socioeconomic History Marital status: Single Spouse name: Kulwinder Number of children: 2 Occupational History Occupation: [employer] Employer: [employer] Comment: Let[employer] Tobacco Use Smoking status: Former Current packs/day: 0.00 Types: Cigarettes Quit date: 01/18/2009 Years since quittin.0 Smokeless tobacco: Former Quit date: 10/21/2019 Vaping Use Vaping status: Former Substance and Sexual Activity Alcohol use: Not Currently Comment: occassional Drug use: No Sexual activity: Yes Partners: Male Other Topics Concern Blood Transfusions No Caffeine Concern No Exercise No Comment: starting to again, aerobics and lifting. Seat Belt Yes Self-Exams No Social History Narrative Engaged-- Kulwinder DaughterJosi, born in 2006. SonRitchie born in 2018 Works in a [employer] center Lives with partner, Kulwinder Feels safe at home, all 3 kids at home too Current Outpatient Medications Medication Sig Dispense Refill acetaminophen (TYLENOL) 325 mg tablet Take 1-2 Tablets (325-650 mg) by mouth every 4 hours if needed (mild pain). Max acetaminophen dose: 4000mg in 24 hrs. 100 Tablet 0 albuterol (PROVENTIL) 0.083 % neb solution Inhale 3 mL (2.5 mg) via a nebulizer every 6 hours if needed for Shortness Of Breath, Wheezing or Cough. 60 mL 1 albuterol HFA (PRO-AIR; VENTOLIN; PROVENTIL) 90 mcg/actuation inhaler INHALE 2 PUFFS BY MOUTH EVERY 6 HOURS NEEDED FOR SHORTNESS OF BREATH OR WHEEZING 18 g 0 cetirizine (ZYRTEC) 10 mg tablet Take 1 Tablet (10 mg) by mouth once daily. 0 cholecalciferol (Vitamin D) 1,000 unit capsule Take 1 Capsule (1,000 units) by mouth once daily. 90 Capsule 3 ibuprofen (ADVIL; MOTRIN) 200 mg tablet Take 2-4 Tablets (400-800 mg) by mouth every 6 hours if needed for Pain (mild pain). 100 Tablet 0 mecobalamin, vitamin B12, (B12 Active) 1,000 mcg chew Chew by mouth. medication order composer Iron Magnesium b-12 0 multivitamin (MVI) tablet Take 1 Tablet by mouth once daily. 0 oxyCODONE (ROXICODONE) 5 mg immediate release tablet Take 1-2 Tablets (5-10 mg) by mouth every 4 hours if needed for Pain. 4 Tablet 0 RISK FACTORS Seat Belt Use: 100% Alcohol/day: 0 Meds/Drugs/ETOH Since LMP: No Control Method: none High Risk Behavior: none INFECTION HISTORY Current Drug Use: none HIV Risk Evaluation: low risk Hepatitis B Risk Evaluation: low risk Hepatitis B Immunized: yes Personal History of Genital Herpes: no Partner History of Genital Herpes: no Rash/Viral Illness Since LMP: No History of STD: chlamydia (as a young person), HPV in 2010 Other: History of Chicken Pox? yes Chicken pox immunization? Family history of - defects: no Chromosomal problems: no Stillbirths: no Desire Test for CYSTIC FIBROSIS or SMA? no Desire genetic testing otherwise? Yes-- interested in testing as AMA REVIEW OF SYSTEMS: General: no fevers, chills, appetite changes, weight changes, fatigue Eyes: no blurry vision, double vision. Ears/Nose/Throat: no hearing changes, pain. no nasal congestion, rhinorrhea, frequent epistaxis. no throat pain, difficulty swallowing. Cardiovascular: no chest pain, chest pressure, syncope, orthostatic symptoms Respiratory: no cough, shortness of breath, dyspnea on exertion, orthopnea Gastrointestinal: + nausea, No vomiting, constipation, diarrhea, melena or bright red rectal bleeding Genitourinary - female: no hematuria, dysuria, incontinence, nocturia. Some cramping Musculoskeletal: no back, arm or leg pain Skin: no rashes or lesions Neurologic: no numbness, weakness, tingling, headaches, falls Psychiatric: no depression, anxiety Endocrine: no polyuria, polydipsia, heat or cold intolerance Heme/Lymphatic: no easy bruising, easy bleeding Allergic/Immunologic: no frequent infections PHYSICAL EXAM BP 110/77 (Cuff Site: Left Arm, Position: Sitting, Cuff Size: Adult Large) Pulse 86 Wt 95.3 kg (210 lb) LMP 12/07/2023 (Exact Date) SpO2 99% BMI 33.89 kg/m General Appearance: Alert, well-developed, well-nourished, with appropriate grooming and dress. No acute distress HEENT Exam: PERRL. MMM. TMs pearly bilaterally. Neck / Thyroid Exam: Supple, no masses, nodes or enlargement. Chest/Respiratory Exam: Normal chest wall and respirations. Clear to auscultation. Breast Exam: deferred Cardiovascular Exam: Regular rate and rhythm. Normal S1, S2. No murmur, click, gallop, or rubs. Gastrointestinal Exam: Soft, non-tender, no masses or organomegaly. Pelvic Exam: Deferred Lymphatic Exam: Non-palpable nodes in neck, clavicular, axillary, or inguinal regions. Musculoskeletal Exam: Back is straight and non-tender, full ROM of upper and lower extremities. Skin: no rash or abnormalities Neurologic Exam: Normal gait and speech, no tremor. Psychiatric Exam: Alert and oriented, appropriate affect. ASSESSMENT/PLAN: ICD-10-CM 1. Supervision of high risk in first trimester O09.91 TYPE & SCREEN HEMOGLOBIN HBSAG (HBS) ANTI HCV RUBELLA IMMUNE STATUS TREPONEMA PALLIDUM VARICELLA ZOSTER VIRUS ANTIBODY (IGG) (QUEST) URINE CULTURE [66527.2] URINALYSIS W REFLEX MICROSCOPIC IF POSITIVE [02548.2] PLATELET COUNT [72135.2] US OB 1ST TRI SINGLE TA AND TV HIV 1/2 AG/AB 4TH GEN W/RFL (QUEST) TSH WITH REFLEX 2. Multigravida of advanced maternal age in first trimester O09.521 TYPE & SCREEN HEMOGLOBIN HBSAG (HBS) ANTI HCV RUBELLA IMMUNE STATUS TREPONEMA PALLIDUM VARICELLA ZOSTER VIRUS ANTIBODY (IGG) (QUEST) URINE CULTURE [93834.2] URINALYSIS W REFLEX MICROSCOPIC IF POSITIVE [70539.2] PLATELET COUNT [59292.2] 3. History of hemorrhage Z87.59 TYPE & SCREEN HEMOGLOBIN HBSAG (HBS) ANTI HCV RUBELLA IMMUNE STATUS TREPONEMA PALLIDUM VARICELLA ZOSTER VIRUS ANTIBODY (IGG) (QUEST) URINE CULTURE [17053.2] URINALYSIS W REFLEX MICROSCOPIC IF POSITIVE [87324.2] PLATELET COUNT [28574.2] 4. Pelvic pain affecting in first trimester, antepartum O26.891 US OB 1ST TRI SINGLE TA AND TV R10.2 5. Mild intermittent reactive airway disease without complication J45.20 1. First OB: Satisfactory exam. Demonstrates appropriate and health seeking behaviors toward her . Verbalizes good understanding of care schedule and the importance of coming to each visit as scheduled. Has supportive family relationship. Reviewed health maintenance issues including diet, exercise, caffeine intake, handling of cat litter, toxic substances, daily vitamins, child classes, choosing a er physician, and regular exams. - Reviewed ordered labs - Reviewed [facility]nings and handouts 2. Will want Jean Marie/panorama testing. Will do after 10 weeks 3. Having more pelvic pain, will get ultrasound to assess for IUP 4. RTC 4 weeks. She was encouraged to call the office with any questions or concerns. Renata Lobato MD .................... 01/19/2024 11:04 AM [facility] [phone] CC: [facility] 01/19/2024 - 5w3d - Luis Alfredo Mt elza Choudhury MD duplicate Last Filed Vital Signs Vital Sign Reading Time Taken Comments Blood Pressure 133/85 09/14/2024 3:21 PM CDT Pulse 80 09/14/2024 3:21 PM CDT Temperature 36.5 C (97.7 F) 08/26/2024 9:10 AM CDT Respiratory Rate 16 09/26/2022 3:05 PM CDT Oxygen Saturation 98% 09/09/2024 9:41 AM CDT Inhaled Oxygen Concentration - - Weight 108.7 kg (239 lb 9.6 oz) 09/09/2024 9:41 AM CDT Height 167.6 cm (5' 6) 09/26/2022 10:3 7 AM CDT Body Mass Index 38.67 09/26/2022 10:37 AM CDT Plan of Treatment Health Maintenance Due Date Last Done Comments BMI (ht and wt on same day) for age 18+ 09/13/2023 09/12/2022, 05/16/2022, 07/10/2020, Additional history exists COVID-19 vaccine series ( season) 2023 05/02/2021, 03/27/2021 Influenza Vaccine (Season Ended) 2024 Depression screening for age 12+ 08/26/2025 08/26/2024, 05/16/2022, 05/02/2021, Additional history exists Pap test for age 21-65 05/02/2026 , 05/02/2021, 05/21/2018, Additional history exists Tetanus booster 06/29/2034 06/29/2024, 12/06, 01/26/2017, Additional history exists Hepatitis B series for 19+ Completed 06/15, 11/18/2001, 10/25/1998 HIV for age 15-65 Completed 01/19/2024, , 09/10/2016, Additional history exists Hepatitis C screening for age 18-79 Completed 01/19/2024, 08/21/2020, 09/10/2016, Additional history exists Tdap Completed 06/29/2024, 12/06, 01/26/2017, Additional history exists Pneumococcal series for age 6-49 Aged Out No longer eligible based on patient's age to complete this topic RSV vaccine for adults or (No Doses Required) Completed Procedures Procedure Name Priority Date/Time Associated Diagnosis Comments SCAN-LABORATORY REPORT 09/13/2024 12:00 AM CDT LAB TRACKING EVENT Routine 09/12/2024 3: 26 PM CDT PATH TISSUE EXAM PLACENTA Routine 09/12/2024 3:25 PM CDT SCAN-LABORATORY REPORT 09/12/2024 12:00 AM CDT SCAN-LABORATORY REPORT 09/11/2024 12:00 AM CDT SCAN-LABORATORY REPORT 09/06/2024 12:00 AM CDT TRICHOMONAS, SILVANO, AND BACTERIAL VAGINOSIS BY SERJIO Routine 09/02/2024 10:33 AM CDT Vaginal odor US OB BIOPHYSICAL PROFILE AND FOLLOW UP SINGLE Routine 08/19/2024 11:57 AM CDT Supervision of high risk in first trimester (HC) Multigravida of advanced maternal age in first trimester (HC) VAGINAL/RECTAL OB STREP PCR Routine 08/19/2024 11:27 AM CDT Supervision of high risk in first trimester (HC) Multigravida of advanced maternal age in first trimester (HC) History of hemorrhage HEMOGLOBIN Routine 08/19/2024 11:06 AM CDT Supervision of high risk in first trimester (HC) SCAN-LABORATORY REPORT 08/12/2024 12:00 AM CDT GLUCOSE TOLERANCE, GESTATIONAL SCREEN 1H Routine 06/17/2024 11:42 AM CDT Supervision of high risk in first trimester (HC) HEMOGLOBIN Routine 06/17/2024 11:42 AM CDT Supervision of high risk in first trimester (HC) TREPONEMA PALLIDUM Routine 06/17/2024 10 :37 AM CDT Supervision of high risk in first trimester (HC) HIV 1/2 ANTIGEN/ANTIBODY FOURTH GENERATION W/RFL (QUEST) Routine 01/19/2024 11:43 AM CDT Supervision of high risk in first trimester (HC) ANTI HCV Routine 01/19/2024 11:43 AM CDT Supervision of high risk in first trimester (HC) Multigravida of advanced maternal age in first trimester (HC) History of hemorrhage HPV HIGH RISK Routine 05/02/2021 11:51 AM NIB FINISHER Pap smear for cervical cancer screening from Last 3 Months or Most Recently Relevant to Health Maintenance Results * SCAN-LABORATORY REPORT (09/13/2024 12:00 AM CDT) Only the most recent of5 resultswithin the time period is included. us Scanner OTHER Final Result * LAB TRACKING EVENT (09/12/2024 3:26 PM CDT) Other (Other) Client Collect / Unknown 09/12/2024 3:26 PM CDT 09/13/2024 1:26 PM CDT us Ingrid Gonzalez MD LAB BILL ONLY Final Resul t [facility] [address] [place] [address], * PATH TISSUE EXAM PLACENTA (09/12/2024 3:25 PM CDT) Case Report Pathology Report Case: [id number] Authorizing Provider: Ingrid Gonzalez MD Collected: 09/12/2024 1525 Ordering Location: [facility] Received: 09/13/2024 1345 Pathologist: Alexa Corado MD Specimen: Placenta 09/15/2024 12:54 PM CDT [facility] Final Diagnosis A) PLACENTA, VAGINAL DELIVERY: 1. Third trimester aguilar placenta with the following characteristics: a. Weight: 483.6 grams (39 week 10-90th percentile weight range, 426 - 611 grams) b. Membranes/ surface: Pigment consistent with meconium present in membranes Negative for chorioamnionitis c. Umbilical cord: Three vessel cord Negative for funisitis d. Disc/Villi: Chorionic villi consistent with gestational age Succenturiate lobe Negative for villitis Placental disc without infarcts e. Decidua/basal plate: No diagnostic abnormalities identified 09/15/2024 12:54 PM CDT [facility] at 1254 CDT Comment Succenturiate (accessory) lobes are found in 3-6% of placentas. In vast majority of cases such a finding is not clinically significant. In rare instances, however, such lobes reflect an underlying uterine pathology that has led to local reduction of uterine perfusion, causing and thus local atrophy and differential growth of placental tissue. 09/15/2024 12:54 PM CDT [facility] Clinical Information 39+2 weeks Vaginal Succenturiate lobe 09/15/2024 12:54 PM CDT [facility] Gross Description A) Received fresh labeled with the patient's name and placenta, is a aguilar placenta with attached membranes and umbilical cord. The marginally inserted membranes are pink-pizarro and semitranslucent, and the point of rupture measures 0.8 cm from the nearest placental disc edge. The paracentrally inserted umbilical cord (47.8 cm long and 1.0 to 1.8 cm diameter) is pizarro-white focally bluegray and partially edematous with a single possible false knot (1.5 cm long and 3.7 cm diameter) located 18.5 cm from the umbilical cord insertion site. The umbilical cord inserts 4.0 cm from the edge of the placental disc, and displays 3 distinct vessels on cut surface. The placental disc (29.0 x 21.5 x 2.5 cm and 483.6 g) surface is bluegray and glistening with prominent unremarkable vasculature and minimal centrally concentrated pizarro-white subchorionic fibrin deposition occupying approximately 5% of the surface. The maternal surface is red-brown with minimally focally disrupted cotyledons that displays minimal scattered foci of pizarro-white fibrin deposition/mineral ization occupying less than 5% of the maternal surface. A 15.0 x 9.5 x 1.3 cm succenturiate lobe is present at the periphery of the placental disc, and several bluegray prominent vessels are observed traversing between the placental disc and succenturiate lobe. Serially sectioning the placental disc reveals homogenous spongy purple-red parenchyma with several scattered foci of pizarro-white fibrin deposition/mineral ization collectively occupying less than 5% of the specimen in total. No distinct parenchymal lesions or other abnormalities are grossly identified. Alumni Relations Manager sections are submitted as follows: 1. Membranes and insertion 2. Umbilical cord 3. Full-thickness central placental disc at umbilical cord insertion site 4-5. Full-thickness central placental disc with fibrin deposition/mineral ization (succenturiate lobe included in cassette 5) ADW 09/13/2024 09/15/2024 12:54 PM CDT [facility] Microscopic Description The final diagnosis is based on microscopic examination of appropriate sections of all specimens. 09/15/2024 12:54 PM CDT [facility] Additional Information Interpreted at [facility] - [address] [place] [id number] 09/15/2024 12:54 PM CDT [facility] Tissue SPECIMEN FROM PLACENTA / Unknown 09/12/2024 3:25 PM CDT 09/13/2024 1:45 PM CDT us Ingrid Gonzalez MD PATHOLOGY/CYTOLOGY Final Re sult [facility] [address] [place] [address], * TRICHOMONAS, SILVANO, AND BACTERIAL VAGINOSIS BY SERJIO (09/02/2024 10:33 AM CDT) SILVANO SPECIES Negative Negative 6:53 PM CDT [facility] SILVANO GLABRATA Negative Negative 09/02/2024 6:53 PM CDT [facility] TRICHOMONAS VVA Negative Negative 6:53 PM CDT [facility] BACTERIAL VAGINOSIS Negative Negative 09/02/2024 6:53 PM CDT [facility] Other VAGINAL SWAB / Unknown Non-Blood / Unknown 09/02/2024 10:33 AM CDT 09/02/2024 10:33 AM CDT us Renata Lobato MD MICROBIOLOGY Final Resul t [facility] [address] [place] [address], [place] * US OB BIOPHYSICAL PROFILE AND FOLLOW UP SINGLE (08/19/2024 11:57 AM CDT) Anatomical Region Laterality Modality Ultrasound 08/19/2024 4:07 PM CDT Impressions 08/19/2024 4:07 PM CDT Normal biophysical profile score of 8/8. Sonographic gestational age 37 weeks 5 days and sonographic due date 09/04/2024. Sonographic age is 13 days ahead of the clinical age. Estimated weight at 94th percentile. Abdominal circumference and head circumference greater than 98th percentile. Dictated by Claudio Sargent MD @ 08/19/2024 4:07:44 PM (Electronically Signed) Narrative 08/19/2024 4:07 PM CDT For Patients: As a result of the Century Cures Act, medical imaging exams and procedure reports are released immediately into your electronic medical record. You may view this report before your referring provider. If you have questions, please contact your health care provider. INDICATION: Supervision of high risk in first trimester TECHNIQUE: Real-time ding-scale imaging of the fetus was performed transabdominal. COMPARISON: 06/02/2024 FINDINGS: Sonographic imaging demonstrates a single living intrauterine gestation. Fetus demonstrates a regular cardiac rate of 132 beats per minute. Fetus has a vertex position. The placenta lies anteriorly without evidence of placenta previa. Amniotic fluid volume appears normal and there is a single deepest pocket of 6.1 cm. The estimated weight is 3324 gm which lies at the 94th%. On the prior OB ultrasound dated 06/02/2024 the estimated weight was at the 95th percentile. BPD 61st percentile. HC and AC greater than 98th percentile. FL 28th percentile. The fetus was active and demonstrated normal breathing movements. There was normal flexion and extension of the trunk and extremities. Procedure Note Claudio Sargetn MD - 08/19/2024 For Patients: As a result of the Century Cures Act, medical imagingexams and procedure reports are released immediately into your electronicmedical record. You may view this report before your referring provider.If you have questions, please contact your health care provider. INDICATION: Supervision of high risk in first trimester TECHNIQUE: Real-time ding-scale imaging of the fetus was performed transabdominal. COMPARISON: 06/02/2024 FINDINGS: Sonographic imaging demonstrates a single living intrauterine gestation.Fetus demonstrates a regular cardiac rate of 132 beats per minute. Fetushas a vertex position. The placenta lies anteriorly without evidence ofplacenta previa. Amniotic fluid volume appears normal and there is asingle deepest pocket of 6.1 cm. The estimated weight is 3324 gmwhich lies at the 94th%. On the prior OB ultrasound dated 06/02/2024 theestimated weight was at the 95th percentile. BPD 61st percentile. HCand AC greater than 98th percentile. FL 28th percentile. The fetus was active and demonstrated normal breathing movements. Therewas normal flexion and extension of the trunk and extremities. IMPRESSION: Normal biophysical profile score of 8/8. Sonographic gestational age 37 weeks 5 days and sonographic due date09/04/2024. Sonographic age is 13 days ahead of the clinical age. Estimated weight at 94th percentile. Abdominal circumference andhead circumference greater than 98th percentile. Dictated by Claudio Sargent MD @ 08/19/2024 4:07:44 PM (Electronically Signed) Renata Lobato MD US Final Resul t * VAGINAL/RECTAL OB STREP PCR (08/19/2024 11:27 AM CDT) Vaginal/Rectal OB Strep B PCR Negative 08/22/2024 12:46 PM CDT [facility] Other (Vaginal/Rectal) Non-Blood / Unknown 08/19/2024 11:27 AM CDT 08/19/2024 11:27 AM CDT Renata Lobato MD MICROBIOLOGY Final Resul t [facility] [address] [place] [address], [place] * (ABNORMAL) HEMOGLOBIN (08/19/2024 11:06 AM CDT) Only the most recent of2 resultswithin the time period is included. HEMOGLOBIN 11.5(L) 11.7 - 15.5 g/dL [facility] Blood BLOOD SPECIMEN / Unknown 08/19/2024 11:06 AM CDT 08/19/2024 11:07 AM CDT Renata Lobato MD HEMATOLOGY Final Resul t Performing Organization Address City/[facility]/ZIP Co de Phone Number [employer] [facility] [address] [facility] [place] [address], [place] [phone] [facility] [address] [place] [address] * GLUCOSE TOLERANCE, GESTATIONAL SCREEN 1H (06/17/2024 11:42 AM CDT) GLUCOSE, GESTATIONAL SCREEN (50G)-140 CUTOFF 104 <140 mg/dL [facility] Blood BLOOD SPECIMEN / Unknown 06/17/2024 11:42 AM CDT 06/17/2024 11:43 AM CDT Renata Lobato MD CHEMISTRY Final Resul t Performing Organization Address City/[facility]/ZIP Co de Phone Number [employer] [facility] [address] [place] [address], [place] [phone] [facility] [address] [place] [address] * TREPONEMA PALLIDUM (06/17/2024 10:37 AM CDT) TREPONEMA PALLIDUM Non-Reacti ve Non-Reacti ve 06/17/2024 10:43 PM CDT [facility] Blood BLOOD SPECIMEN / Unknown [facility] Collect / Unknown 06/17/2024 10:37 AM CDT 06/17/2024 10:37 AM CDT Renata Lobato MD SEND OUTS Final Resul t [facility] [address] [place] [address], * HIV 1/2 AG/AB 4TH GEN W/RFL ([facility]) (01/19/2024 11:43 AM CDT) HIV AG/AB, 4TH GEN NON-REACT KAROLINA NON-REACT KAROLINA [facility] [place] Comment: HIV-1 antigen and HIV-1/HIV-2 antibodies were not detected. There is no laboratory evidence of HIV infection. PLEASE NOTE: This information has been disclosed to you from records whose confidentiality may be protected by state law. If your state requires such protection, then the state law prohibits you from making any further disclosure of the information without the specific written consent of the person to whom it pertains, or as otherwise permitted by law. A general authorization for the release of medical or other information is NOT sufficient for this purpose. For additional information please refer to http://education.WorldDesk/faq/SCE989 (This link is being provided for informational/ educational purposes only.) The performance of this assay has not been clinically validated in patients less than 2 years old. Blood BLOOD SPECIMEN / Unknown 01/19/2024 11:43 AM CDT 01/19/2024 11:44 AM CDT Renata Lobato MD SEND OUTS Final Resul t [facility] [address] [place] [address], [place] [phone] [facility] [address] [place] [address] * ANTI HCV (01/19/2024 11:43 AM CDT) HEPATITIS C ANTIBODY NON-REACTI VE NON-REACT [place]AR[place]INA [facility] Comment: HCV antibody was non-reactive. There is no laboratory evidence of HCV infection. In most cases, no further action is required. However, if recent HCV exposure is suspected, a test for HCV RNA (test code 05877) is suggested. For additional information please refer to http://education.WorldDesk/faq/EBG96u8 (This link is being provided for informational/ educational purposes only.) Blood BLOOD SPECIMEN / Unknown 01/19/2024 11:43 AM CDT 01/19/2024 11:44 AM CDT Renata Lobato MD SEND OUTS Final Resul t Performing Organization Address City/[facility] de Phone Number [employer] [facility] [address] [place] [address], [facility] [address] [place] [address] * HPV HIGH RISK (05/02/2021 11:51 AM NIB FINISHER) TYPE 16 Negative Negative 05/06/2021 11:12 AM NIB FINISHER [facility] TYPE 18 Negative Negative 05/06/2021 11:12 AM NIB FINISHER [facility] OTHER HIGH RISK TYPES Negative Negative 05/06/2021 11:12 AM NIB FINISHER [facility] Other (Cervical) Non-Blood / Unknown 05/02/2021 11:51 AM NIB FINISHER 05/03/2021 8:39 AM NIB FINISHER Narrative [facility] - 05/06/2021 11:12 AM NIB FINISHER HPV types 16, 18, 31, 33, 35, 39, 45, 51, 52, 56, 58, 59, 66 and 68 DNA were undetectable or below the pre-set threshold. Methodology: Melonie Ritesh 4800 HPV Test Renata Lobato MD MICROBIOLOGY Final Resul t [facility] 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
[2024-09-17 22:37] VITALS: BP 146/86; PULSE 67; RESP 16; TEMP 36.4; O2SAT 98; BMI 36.8
[2024-09-17 22:46] VITALS: BP 136/83; PULSE 71; RESP 16
[2024-09-17 23:00] VITALS: BP 141/88; PULSE 66; RESP 16; O2SAT 96
--- NOTE | 2024-09-17 23:13 | ED_ITS ---
HPI - General Adult General Chief complaint: Post OB/Post- Complication Stated complaint: high blood pressure, left side abdominal pain Time Seen by Provider: 09/17/24 23:13 History of Present Illness HPI narrative: delivered baby on Thursday, hugh had 2 BP readings of 150/85. patient states no hx of preeclampsia during but reports after deliver she had high liver enzymes but was able to DC and advised to keep an eye on BPs by her OB team. also reports new L sided upper quadrantes pain that starting this AM and has been getting worse as the night goes on. denies nausea/ vomiting/ vision changes. patient is a with no previous hx of complications during or after 33-year-old woman presenting to the emergency department concern of high blood pressure and left-sided abdominal pain. Has been having daily bowel movements. Would not consider herself to be constipated. Has been taking Colace. No dysuria. Delivered 5 days ago. Did have an isolated mild elevation of blood pressure and AST. Has been watching her blood pressure since delivery. Was not diagnosed with hypertension of or preeclampsia. She is not having headache. No nausea. She acknowledges the blood pressures seem to be improved upon arrival here to the emergency department and would really like just to go home. Noting that otherwise she feels well. Related Data Home Medications ?Medication ?Instructions ?Recorded ?Confirmed cetirizine 10 mg capsule (All Day 10 mg PO DAILY PRN 0 08/24/24 09/17/24 Allergy (cetirizine)) vit no.95-ferrous 1 tab PO DAILY 08/24/24 fumarate 28 mg-folic acid 800 mcg tablet ( Formula) docusate sodium 100 mg capsule 100 mg PO BID 09/17/24 09/17/24 Allergies Allergy/AdvReac Type Severity Reaction Status Date / Time erythromycin base Allergy Verified 09/11/24 20:26 Review of Systems Status of ROS: Reports: 6 or more systems reviewed and unremarkable except as noted in History and below [facility] Medical History (normal spontaneous vaginal delivery) ?O80 - Encounter for full-term uncomplicated delivery (ICD-10) Gestational HTN ?O13.9 - Gestational [-induced] hypertension without significant proteinuria, unspecified trimester (ICD-10) Advanced maternal age (AMA) in History of hemorrhage, currently ?O09.299 - Supervision of with other poor reproductive or obstetric history, unspecified trimester (ICD-10) Family history of melanoma ?Z80.8 - Family history of malignant neoplasm of other organs or systems (ICD-10) Family history of early CAD ?Z82.49 - Family history of ischemic heart disease and other diseases of the circulatory system (ICD-10) Mild intermittent asthma ?J45.20 - Mild intermittent asthma, uncomplicated (ICD-10) Endometriosis determined by laparoscopy ?N80.9 - Endometriosis, unspecified (ICD-10) Surgical History [place] teeth extracted ?K08.409 - Partial loss of teeth, unspecified cause, unspecified class (ICD- 10) History of tonsillectomy and adenoidectomy ?Z90.89 - Acquired absence of other organs (ICD-10) Hx of laparoscopy ?Z98.890 - Other specified postprocedural states (ICD-10) H/O colposcopy with cervical biopsy ?Z98.890 - Other specified postprocedural states (ICD-10) Status post breast reduction ?Z98.890 - Other specified postprocedural states (ICD-10) Hx of appendectomy ?Z90.49 - Acquired absence of other specified parts of digestive tract (ICD- 10) Social History What is your current living situation?: I presently have a place to live Problems where you live: no known problems In the past 12 months, utilities in danger of being shut off: no In past 12 months, lack of transportation kept you from medical appts, meetings, work, or getting things needed for daily living: no In the past 12 mos, have been you worried that your food would run out before you had money to buy more?: never true In the past 12 mos, the food you bought just didn't last and you didn't have money to buy more?: never true Smoking Status: Never smoker How often do you have a drink containing alcohol: never AUDIT-C Alcohol total score: 0 Non-prescribed substance use: denies use How often does anyone, including family, friends and others, physically hurt you : never How often does anyone, including family, friends and others, insult or talk down to you: never How often does anyone, including family, friends and others, threaten you with harm: never How often does anyone, including family, friends and others, scream or curse at you: never Exam Narrative: Exam Narrative: Pleasant. Of good energy. Does appear though little tired. Breathing easily. Lungs are clear. Heart in regular rate and rhythm. Abdomen is soft with mild tenderness in the left upper abdomen. No peritoneal signs. Not clearly with flank pain. Extremities are well perfused without edema. No clonus. Const: Vital Signs, click to edit/add: Vital Signs - 24 hr 09/17/24 22:37 09/17/24 23:00 Temperature 97.6 F Pulse Rate [Pulse Oximeter] 67 66 Respiratory Rate 16 16 Blood Pressure [Ri ght Upper Arm] 146/86 H 141/88 H Pulse Oximetry 98 96 Oxygen Delivery Me thod Room Air Room Air Documenting provider has reviewed patient's vital signs: yes Course Vital Signs Vital signs: Initial Vital Signs Temperature 97.6 F 09/17/24 22:37 Temperature Source Temporal Artery Scan 09/17/24 22:37 Pulse Rate 67 09/17/24 22:37 Respiratory Rate 16 09/17/24 22:37 Blood Pressure 146/86 H 09/17/24 22:37 Blood Pressure Mean 106 H 09/17/24 22:37 Blood Pressure Position Sitting 09/17/24 22:37 Pulse Oximetry 98 09/17/24 22:37 Oxygen Delivery Method Room Air 09/17/24 22:37 Vital Signs Temperature 97.6 F 09/17/24 22:37 Pulse Rate 67 09/17/24 22:37 Respiratory Rate 16 09/17/24 22:37 Blood Pressure 146/86 H 09/17/24 22:37 Pulse Oximetry 98 09/17/24 22:37 Oxygen Delivery Method Room Air 09/17/24 22:37 Temperature 97.6 F 09/17/24 22:37 Pulse Rate 66 09/17/24 23:00 Respiratory Rate 16 09/17/24 23:00 Blood Pressure 136/83 09/18/24 00:21 Pulse Oximetry 96 09/17/24 23:00 Oxygen Delivery Method Room Air 09/17/24 23:00 Medical Decision Making MDM Narrative Medical decision making narrative: Will check labs to indicate further whether not there is any evidence of preeclampsia. Pending results of labs might pursue further workup/imaging for her abdomen which on exam is relatively benign. Differential would include constipation related pain, splenic congestion, pyelonephritis/urinary tract infection, intrauterine bleeding. After returning from the bathroom and resting in bed has recheck blood pressure Most recently 128/86. Monitoring during time in the emergency department. Blood pressure is overall improved. Labs though with mildly elevated transaminases. Urinalysis consistent with recently . Stable hemoglobin. Did discuss this case with OB on-call. Recommending close monitoring of blood pressures and reporting. No further interventions at this time. Please continue to check your blood pressures daily after period of rest. Report those in to Women's [facility]. Return for repeated blood pressures of 150/80 or greater, marked headache, marked increase in abdominal pain, persistent shortness of breath, chest pain. Would consider also starting more treatment for potential constipation with addition of MiraLax equivalent up to 3 doses per day each in at least 8 oz of liquid, adjusting to stool consistency. Would probably continue your Colace at this point. Medical Records Medical records reviewed: Yes I reviewed the patient's medical records Lab Data Lab results reviewed: Yes I reviewed the patient's lab results Labs: Lab Results 09/17/24 Range/Units 23:42 WBC 8.01 (4.50-11.00) K/uL RBC 3.61 L (4.00-5.20) m/uL Hgb 10.8 L (12.0-16.0) gm/dL Hct 32.1 L (33.0-51.0) % MCV 89 (80-100) fL MCH 30 (26-34) pg MCHC 34 (32-36) gm/dL RDW Coeff of Samantha 13.5 (11.5-15.5) % Plt Count 286 (140-440) K/uL Neut % (Auto) 62.9 (42.0-72.0) % Lymph % (Auto) 26.8 (20-44) % [place] % (Auto) 6.1 (0.0-11.0) % Eos % (Auto) 2.2 (0.0-7.0) % Baso % (Auto) 0.4 (0.0-3.0) % Neut # (Auto) 5.03 (1.7-7.0) K/uL Lymph # (Auto) 2.15 (0.90-2.90) K/uL [place] # (Auto) 0.50 (0.00-0.90) K/UL Eos # (Auto) 0.18 (0.00-0.50) K/uL Baso # (Auto) 0.03 (0.00-0.30) K/uL Abs Immat Gran (auto) 0.13 (0.00-0.30) K/uL Imm/Tot Granulo (auto) 1.6 % Sodium 140 (135-149) mmol/L Potassium 4.1 (3.6-5.1) mmol/L Chloride 105 (96-114) mmol/L Carbon Dioxide 26 (20-32) mmol/L Anion Gap 9 (7-15) mEq/L BUN 12 (5-24) mg/dL Creatinine 0.6 (0.5-1.5) mg/dL Estimated Creat Clear 122.51 Estimated GFR 120 ml/min Glucose 97 (60-115) mg/dL Uric Acid 5.8 (2.2-8.4) mg/dL Calcium 10.0 (8.4-10.6) mg/dL Magnesium 1.9 (1.5-2.6) mg/dL Total Bilirubin 0.3 (0.1-1.5) mg/dL Direct Bilirubin 0.1 (0.0-0.5) mg/dL AST 45 H (12-35) U/L ALT 51 H (4-35) U/L Alkaline Phosphatase 81 (40-150) U/L Lactate Dehydrogenase 266 H (120-246) U/L Total Protein 6.8 (6.0-8.3) g/dL Albumin 4.0 (3.3-5.0) g/dL Urine Color Yellow (Yellow) Urine Appearance Clear (Clear) Urine pH 6.5 (5.0-8.5) Ur Specific [place] 1.015 (1.000-1.030) Urine Protein Negative (Negative) Urine Glucose (UA) Negative (Negative) Urine Ketones Negative (Negative) Urine Blood 3+ A (Negative) Urine Nitrite Negative (Negative) Urine Bilirubin Negative (Negative) Urine Urobilinogen 0.2 (0.2-1.0) Ur Leukocyte Esterase Trace A (Negative) Urine RBC 2-5 A (0-2) Urine WBC 2-5 (0-5) Ur Squamous Epith Cells Few (None-Few) Urine Bacteria None (None) Discharge Plan Discharge Clinical Impression: Elevated blood pressure reading, Abdominal pain Patient Disposition: Home, Self-Care Condition: Improved Additional Instructions: Please continue to check your blood pressures daily after period of rest. Report those in to Women's Health. Return for repeated blood pressures of 150/80 or greater, marked headache, marked increase in abdominal pain, persistent shortness of breath, chest pain. Would consider also starting more treatment for potential constipation with addition of MiraLax equivalent up to 3 doses per day each in at least 8 oz of liquid, adjusting to stool consistency. Would probably continue your Colace at this point. Prescriptions: No Action All Day Allergy (cetirizine) 10 mg capsule 10 mg PO DAILY PRN PNV cmb#95-ferrous fumarate-FA [ Formula] 28 mg iron- 800 mcg tablet 1 tab PO DAILY docusate sodium 100 mg capsule 100 mg PO BID Follow Up/Referrals: Renata Lobato MD [Primary Care Provider, Family Practice] Stand Alone Forms: [employer] Info Instructions
[2024-09-17 23:49] LABS: Appearance Urine Clear (Clear); Basophils Absolute Auto 0.03 K/uL (0.00-0.30); Basophils Percent Auto 0.4 % (0.0-3.0); Bilirubin Urine Negative (Negative); Blood Urine 3+ (Negative); Color Urine Yellow (Yellow); Eosinophils Absolute Auto 0.18 K/uL (0.00-0.50); Eosinophils Percent Auto 2.2 % (0.0-7.0); Glucose Urine Negative (Negative); Hematocrit 32.1 % (33.0-51.0); Hemoglobin* 10.8 gm/dL (12.0-16.0); Immature Granulocytes Abs Auto 0.13 K/uL (0.00-0.30); Immature Granulocytes Pct Auto 1.6 %; Ketones Urine Negative (Negative); Leukocyte Esterase Urine Trace (Negative); Lymphocytes Absolute Auto 2.15 K/uL (0.90-2.90); Lymphocytes Percent Auto 26.8 % (20-44); Mean Corpuscular HGB Conc 34 gm/dL (32-36); Mean Corpuscular Hemoglobin 30 pg (26-34); Mean Corpuscular Volume 89 fL (80-100); Monocytes Percent Auto 6.1 % (0.0-11.0); Neutrophils Absolute Auto 5.03 K/uL (1.7-7.0); Neutrophils Percent Auto 62.9 % (42.0-72.0); Nitrite Urine Negative (Negative); Platelet Count* 286 K/uL (140-440); Protein Urine Negative (Negative); RDW Coefficient of Variation % 13.5 % (11.5-15.5); Red Blood Count 3.61 m/uL (4.00-5.20); Specific Gravity Urine 1.015 (1.000-1.030); Urobilinogen Urine 0.2 (0.2-1.0); White Blood Count* 8.01 K/uL (4.50-11.00); pH Urine 6.5 (5.0-8.5)
[2024-09-17 23:56] LABS: Squamous Epithelial Cell Urine Few (None-Few)
[2024-09-18 00:03] LABS: Chloride* 105 mmol/L (96-114); Sodium* 140 mmol/L (135-149)
[2024-09-18 00:04] LABS: Potassium* 4.1 mmol/L (3.6-5.1)
[2024-09-18 00:06] LABS: Alanine Aminotransferase* 51 U/L (4-35); Alkaline Phosphatase* 81 U/L (40-150); Anion Gap 9 mEq/L (7-15); Aspartate Amino Transferase* 45 U/L (12-35); Bilirubin Direct* 0.1 mg/dL (0.0-0.5); Bilirubin Total* 0.3 mg/dL (0.1-1.5); Blood Urea Nitrogen* 12 mg/dL (5-24); Carbon Dioxide* 26 mmol/L (20-32); Creatinine* 0.6 mg/dL (0.5-1.5); Est. Creatinine Clearance* 122.51; Estimated Glomerular Filt Rate 120 ml/min; Glucose* 97 mg/dL (60-115); Lactate Dehydrogenase* 266 U/L (120-246); Total Protein* 6.8 g/dL (6.0-8.3); Uric Acid* 5.8 mg/dL (2.2-8.4)
[2024-09-18 00:07] LABS: Magnesium* 1.9 mg/dL (1.5-2.6)
[2024-09-18 00:17] LABS: Slide Review Reflex No
[2024-09-18 00:21] VITALS: BP 136/83
== END 2024-09-18 00:30 | disposition home or self-care (01) ==
PROVIDERS: Emergency Provider Family Medicine; PCP Family Medicine
DX: R10.9 Unspecified abdominal pain (principal); R03.0 Elevated blood-pressure reading, without diagnosis of hypertension
CPT/HCPCS: 36415; 80048; 80076; 81001; 83615; 83735; 84550; 85025; 87086; 99283; 99284